=== PATIENT | female | born 1980 | race Caucasian/White ===

== ENCOUNTER 2020-01-25 18:49 | Inpatient (IN) ==
[~2020-01-25 18:49] MED LIST: cefTRIAXone 1,000 MG in Water for inj. (sterile) 10 ML IVPB SCH
[2020-01-25] MEDS ORDERED: Naloxone 0.4 MG/ML INJ IVP PRN (22:24)
[2020-01-25] MEDS ORDERED: 0.9 % Sodium Chloride 1,000 ML IVC SCH (22:30)
[2020-01-25] MEDS: *HR* HYDROcodone/Acet 5/325 mg TABLET PO PRN (23:25)
[2020-01-25] MEDS: tiZANidine 4 MG TABLET PO PRN (23:26)
[2020-01-25] MEDS: *HR* Heparin 5,000 UNIT/ML VIAL SQ SCH (23:26)
[2020-01-26] MEDS: *HR* Heparin 5,000 UNIT/ML VIAL SQ SCH ×3 (05:00→20:06)
[2020-01-26 05:32] LABS: Basophils # 0.1 K/mcL (0.0-0.2); Basophils % 0.3 %; Eosinophils # 0.3 K/mcL (0.0-0.6); Eosinophils % 1.9 %; Hematocrit 33.7 % (35.3-44.9); Immature Granulocytes % 0.5 % (0-4); Lymphocytes # 1.8 K/mcL (0.6-4.6); Mean Corpuscular HGB Conc 32.6 g/dL (31.6-35.5); Mean Corpuscular Volume 91.8 fL (83.0-100.0); Mean Platelet Volume 9.5 fL (9.4-12.4); Monocytes % 6.3 %; Neutrophils # 12.9 K/mcL (1.6-8.9); Platelet Count 369 K/mcL (140-400); Red Blood Count 3.67 M/mcL (3.82-4.97); Red Cell Distribution Width 14.6 % (11.5-14.5); White Blood Count 16.2 K/mcL (4.3-11.1)
[2020-01-26 05:41] LABS: Amphetamine Screen,Urine Negative ng/mL (Cutoff=1000); Barbiturate Screen,Urine Negative ng/mL (Cutoff=200); Benzodiazepines Screen,Urine Negative ng/mL (Cutoff=200); Cannabinoid Screen,Urine Positive ng/mL (Cutoff = 50); Cocaine Screen,Urine Negative ng/mL (Cutoff= 300); Opiate Screen,Urine Positive ng/mL (Cutoff=300); Phencyclidine Screen,Urine Negative ng/mL (Cutoff=25)
[2020-01-26 05:53] LABS: Alanine Aminotransferase 10 Units/L (7-52); Albumin 3.5 g/dL (3.5-5.7); Albumin/Globulin Ratio 1.1 (1.1-2.2); Alkaline Phosphatase 71 Units/L (34-104); Aspartate Amino Transferase 26 Units/L (13-39); BUN/Creatinine Ratio 12 (6-26); Bilirubin,Total 0.5 mg/dL (0.3-1.0); Blood Urea Nitrogen 6 mg/dL (6-20); C-Reactive Protein 293 mg/L (Less than 10); Calcium 8.9 mg/dL (8.6-10.3); Carbon Dioxide 19 mEq/L (23-29); Chloride 106 mEq/L (98-107); Globulin 3.1 g/dL (2.4-3.5); Glucose 96 mg/dL (70-105); Lactate Dehydrogenase 416 Units/L (140-271); Osmolality,Calculated 275 (280-300); Potassium 3.6 mEq/L (3.5-5.1); Sodium 134 mEq/L (136-145); Total Protein 6.6 g/dL (6.4-8.9); eGFR For African Americans > 60 (> 60); eGFR For Non-African Americans > 60 (> 60)
[2020-01-26 06:10] LABS: Ferritin 58 ng/mL (10-120)
[2020-01-26] MEDS ORDERED: Vancomycin 1,500 MG/265 ML IV.SOLN IVPB SCH (08:00)
[2020-01-26] MEDS: Azithromycin 500 MG in 0.9 % Sodium Chloride 250 ML IVPB SCH (08:14)
[2020-01-26] MEDS: Cefepime HCl 2,000 MG in Water for inj. (sterile) 20 ML IVP SCH ×3 (08:14→23:31)
[2020-01-26] MEDS: Gabapentin 400 MG CAPSULE PO SCH ×4 (08:15→20:06)
[2020-01-26] MEDS: amLODIPine 5 MG TABLET PO SCH (08:15)
[2020-01-26] MEDS: lisinopriL 20 MG TABLET PO SCH (08:15)
[2020-01-26] MEDS ORDERED: cefTRIAXone 1,000 MG in Water for inj. (sterile) 10 ML IVPB SCH (09:00)
[2020-01-26] MEDS: *HR* HYDROcodone/Acet 5/325 mg TABLET PO PRN ×3 (09:30→20:06)
[2020-01-26] MEDS: Ketorolac 30 MG/ML VIAL IVP PRN ×2 (11:28→23:31)
[2020-01-26] MEDS: Ondansetron 4 MG/2 ML VIAL IVP PRN (11:28)
[2020-01-26] MEDS: tiZANidine 4 MG TABLET PO PRN ×2 (11:28→23:31)
[2020-01-26] MEDS: Aspirin 81 MG TAB.CHEW PO SCH (14:15)
[2020-01-26] MEDS: QUEtiapine Fumarate 100 MG TABLET PO SCH (20:06)
[2020-01-26] MEDS: rOPINIRole 0.25 MG TABLET PO SCH (20:06)
[2020-01-27] MEDS: *HR* HYDROcodone/Acet 5/325 mg TABLET PO PRN ×5 (05:07→22:37)
[2020-01-27] MEDS: *HR* Heparin 5,000 UNIT/ML VIAL SQ SCH ×3 (05:07→22:36)
[2020-01-27 06:27] LABS: Hemoglobin 10.6 g/dL (11.5-15.4); Mean Corpuscular HGB Conc 32.1 g/dL (31.6-35.5); Mean Corpuscular Hemoglobin 29.3 pg (28.0-33.3); Mean Corpuscular Volume 91.2 fL (83.0-100.0); Mean Platelet Volume 9.5 fL (9.4-12.4); Platelet Count 386 K/mcL (140-400); Red Blood Count 3.62 M/mcL (3.82-4.97); Red Cell Distribution Width 14.4 % (11.5-14.5)
[2020-01-27] MEDS: Ketorolac 30 MG/ML VIAL IVP PRN ×2 (06:44→14:57)
[2020-01-27 06:48] LABS: BUN/Creatinine Ratio 15 (6-26); Blood Urea Nitrogen 9 mg/dL (6-20); Calcium 8.9 mg/dL (8.6-10.3); Carbon Dioxide 22 mEq/L (23-29); Chloride 108 mEq/L (98-107); Glucose 85 mg/dL (70-105); Osmolality,Calculated 284 (280-300); Potassium 3.8 mEq/L (3.5-5.1); Sodium 138 mEq/L (136-145); eGFR For African Americans > 60 (> 60); eGFR For Non-African Americans > 60 (> 60)
[2020-01-27] MEDS: lisinopriL 20 MG TABLET PO SCH (08:32)
[2020-01-27] MEDS: Gabapentin 400 MG CAPSULE PO SCH ×4 (08:32→20:23)
[2020-01-27] MEDS: amLODIPine 5 MG TABLET PO SCH (08:32)
[2020-01-27] MEDS: Cefepime HCl 2,000 MG in Water for inj. (sterile) 20 ML IVP SCH ×2 (08:32→17:21)
[2020-01-27] MEDS: Aspirin 81 MG TAB.CHEW PO SCH (08:32)
[2020-01-27] MEDS ORDERED: Aminoglycoside Consult 1 EACH MC ONE (08:59)
[2020-01-27] MEDS: Azithromycin 500 MG in 0.9 % Sodium Chloride 250 ML IVPB SCH (09:11)
[2020-01-27] MEDS: QUEtiapine Fumarate 100 MG TABLET PO SCH (20:23)
[2020-01-27] MEDS: rOPINIRole 0.25 MG TABLET PO SCH (20:23)
[2020-01-27] MEDS: tiZANidine 4 MG TABLET PO PRN (22:37)
[2020-01-28] MEDS: Cefepime HCl 2,000 MG in Water for inj. (sterile) 20 ML IVP SCH ×2 (00:25→08:36)
[2020-01-28] MEDS: *HR* HYDROcodone/Acet 5/325 mg TABLET PO PRN ×3 (04:13→12:43)
[2020-01-28] MEDS: *HR* Heparin 5,000 UNIT/ML VIAL SQ SCH ×2 (05:18→12:07)
[2020-01-28] MEDS: Ketorolac 30 MG/ML VIAL IVP PRN (05:18)
[2020-01-28 05:36] LABS: Hematocrit 32.8 % (35.3-44.9); Hemoglobin 10.6 g/dL (11.5-15.4); Mean Corpuscular HGB Conc 32.3 g/dL (31.6-35.5); Mean Corpuscular Hemoglobin 29.2 pg (28.0-33.3); Mean Corpuscular Volume 90.4 fL (83.0-100.0); Mean Platelet Volume 9.1 fL (9.4-12.4); Platelet Count 428 K/mcL (140-400); Red Blood Count 3.63 M/mcL (3.82-4.97); Red Cell Distribution Width 14.2 % (11.5-14.5); White Blood Count 6.5 K/mcL (4.3-11.1)
[2020-01-28 05:52] LABS: BUN/Creatinine Ratio 22 (6-26); Blood Urea Nitrogen 12 mg/dL (6-20); Calcium 8.7 mg/dL (8.6-10.3); Carbon Dioxide 20 mEq/L (23-29); Chloride 112 mEq/L (98-107); Glucose 88 mg/dL (70-105); Osmolality,Calculated 283 (280-300); Potassium 3.9 mEq/L (3.5-5.1); Sodium 137 mEq/L (136-145); eGFR For African Americans > 60 (> 60); eGFR For Non-African Americans > 60 (> 60)
[2020-01-28] MEDS: amLODIPine 5 MG TABLET PO SCH (08:39)
[2020-01-28] MEDS: lisinopriL 20 MG TABLET PO SCH (08:39)
[2020-01-28] MEDS: Aspirin 81 MG TAB.CHEW PO SCH (08:40)
[2020-01-28] MEDS: Gabapentin 400 MG CAPSULE PO SCH ×2 (08:40→12:07)
[2020-01-28] MEDS: Azithromycin 500 MG in 0.9 % Sodium Chloride 250 ML IVPB SCH (08:41)
[2020-01-28] MEDS ORDERED: Venlafaxine XR (24 HR) 75 MG CAP.ER.24H PO SCH (09:00)
[2020-01-28] MEDS ORDERED: Venlafaxine XR (24 HR) 150 MG CAP.ER.24H PO SCH (09:00)
[2020-01-28] MEDS: Ondansetron 4 MG/2 ML VIAL IVP PRN (10:45)
[2020-01-28] MEDS ORDERED: *HR* Propofol 200 MG/20 ML VIAL IVP ONE (11:06)
[2020-01-28] MEDS ORDERED: *HR* FentaNYL (PF) 100 MCG/2 ML VIAL ONE (11:06)
[2020-01-28] MEDS ORDERED: Ondansetron 4 MG/2 ML VIAL ONE (11:06)
[2020-01-28] MEDS ORDERED: Lidocaine -MPF 4% 5 ML AMPUL ONE (11:06)
[2020-01-28] MEDS ORDERED: Dexamethasone 4 MG/ML VIAL ONE (11:06)
[2020-01-28] MEDS ORDERED: *HR* EPINEPHrine 1 MG/10 ML SYRINGE INTRATRACH PRN (11:34)
[2020-01-28 12:46] VITALS: BP 115/69
[2020-01-28 16:25] LABS: Appearance of Body Fluid Clear (Clear); Volume of Body Fluid 15 mL; Volume of Body Fluid 22 mL
[2020-01-29 07:22] LABS: ANA IgG by ELISA NONE DETECTED (None Detected); Serine Protease-3 Antibody 1 AU/mL (0-19)
[2020-01-29] MEDS ORDERED: Azithromycin 250 MG TABLET PO SCH (09:00)
== END 2020-01-28 16:06 | disposition home or self-care (01) | DRG 720 ==
LOC: 2NENU
PROVIDERS: ADMIT Student in an Organized Health Care Education/Training Program; ATTEND Student in an Organized Health Care Education/Training Program
PROC: ENDOBRF (2020-01-28 10:05)

== ENCOUNTER 2020-03-19 01:01 | Inpatient (IN) ==
[2020-03-19] MEDS ORDERED: Naloxone 0.4 MG/ML INJ IVP PRN ×3 (02:56→19:09)
[2020-03-19] MEDS ORDERED: Acetaminophen 325 MG TABLET PO PRN ×2 (03:03→19:09)
[2020-03-19] MEDS ORDERED: *HR* Promethazine 25 MG/ML VIAL IVP PRN ×2 (03:03→19:09)
[2020-03-19 03:50] LABS: Adenovirus Not Detected (Not Detect); Bordetella Pertussis Not Detected (Not Detect); Chlamydophila pneumoniae Not Detected (Not Detect); Coronavirus 229E Not Detected (Not Detect); Coronavirus HKU1 Not Detected (Not Detect); Coronavirus NL63 Not Detected (Not Detect); Coronavirus OC43 Not Detected (Not Detect); Human Metapneumovirus Not Detected (Not Detect); Human Rhinovirus/Enterovirus Not Detected (Not Detect); Influenza A Subtype 2009 H1 Not Detected (Not Detect); Influenza B Not Detected (Not Detect); Mycoplasma pneumoniae Not Detected (Not Detect); Parainfluenza Virus 1 Not Detected (Not Detect); Parainfluenza Virus 2 Not Detected (Not Detect); Parainfluenza Virus 3 Not Detected (Not Detect); Parainfluenza Virus 4 Not Detected (Not Detect); Respiratory Syncytial Virus Not Detected (Not Detect); SARS-CoV-2 Not Detected (Not Detect)
[2020-03-19 04:39] LABS: Basophils % 0.2 %; Eosinophils # 0.3 K/mcL (0.0-0.6); Eosinophils % 1.7 %; Hematocrit 33.1 % (35.3-44.9); Hemoglobin 10.6 g/dL (11.5-15.4); Immature Granulocytes % 0.6 % (0-4); Lymphocytes # 1.7 K/mcL (0.6-4.6); Lymphocytes % 8.6 %; Mean Corpuscular Hemoglobin 28.8 pg (28.0-33.3); Mean Corpuscular Volume 89.9 fL (83.0-100.0); Mean Platelet Volume 9.5 fL (9.4-12.4); Monocytes # 0.8 K/mcL (0.0-1.3); Monocytes % 3.9 %; Neutrophils # 16.4 K/mcL (1.6-8.9); Platelet Count 382 K/mcL (140-400); Red Blood Count 3.68 M/mcL (3.82-4.97); Red Cell Distribution Width 14.6 % (11.5-14.5); White Blood Count 19.3 K/mcL (4.3-11.1)
[2020-03-19 04:47] LABS: INR 1.1; Prothrombin Time 12.6 Seconds (9.4-12.1)
[2020-03-19 05:03] LABS: Alanine Aminotransferase 8 Units/L (7-52); Albumin 3.6 g/dL (3.5-5.7); Albumin/Globulin Ratio 1.3 (1.1-2.2); Alkaline Phosphatase 87 Units/L (34-104); Aspartate Amino Transferase 29 Units/L (13-39); BUN/Creatinine Ratio 14 (6-26); Bilirubin,Total 0.4 mg/dL (0.3-1.0); Blood Urea Nitrogen 10 mg/dL (6-20); Calcium 8.4 mg/dL (8.6-10.3); Carbon Dioxide 23 mEq/L (23-29); Chloride 106 mEq/L (98-107); Chol/HDL Ratio 3.5 (0-4.9); Cholesterol 137 mg/dL (< 200); Globulin 2.7 g/dL (2.4-3.5); Glucose 98 mg/dL (70-105); HDL Cholesterol 39 mg/dL (40-59); LDL Cholesterol,Calculated 76 mg/dL (< 100); Osmolality,Calculated 281 (280-300); Phosphorous 2.4 mg/dL (2.7-4.5); Sodium 136 mEq/L (136-145); Total Protein 6.3 g/dL (6.4-8.9); Triglycerides 109 mg/dL (< 150); eGFR For African Americans > 60 (> 60); eGFR For Non-African Americans > 60 (> 60)
[2020-03-19] MEDS ORDERED: Ipratropium/Albuterol Neb 3 ML IH PRN ×2 (05:03→19:09)
[2020-03-19] MEDS ORDERED: tiZANidine 4 MG TABLET PO PRN (05:31)
[2020-03-19 06:35] LABS: Procalcitonin 0.21 ng/mL (0.00-0.15)
[2020-03-19] MEDS: *HR* HYDROcodone/Acet 5/325 mg TABLET PO PRN ×4 (06:37→21:54)
[2020-03-19 06:58] LABS: Folate 7.9 ng/mL (3.0-16.0)
[2020-03-19] MEDS ORDERED: lisinopriL 20 MG TABLET PO SCH (09:00)
[2020-03-19] MEDS ORDERED: Azithromycin 500 MG in 0.9 % Sodium Chloride 250 ML IVPB SCH (09:00)
[2020-03-19] MEDS ORDERED: amLODIPine 5 MG TABLET PO SCH (09:00)
[2020-03-19] MEDS ORDERED: cefTRIAXone 1,000 MG in 0.9 % Sodium Chloride Mini Bag 100 ML IVPB SCH (09:00)
[2020-03-19] MEDS ORDERED: Venlafaxine XR (24 HR) 75 MG CAP.ER.24H PO SCH (09:00)
[2020-03-19] MEDS ORDERED: Venlafaxine XR (24 HR) 150 MG CAP.ER.24H PO SCH (09:00)
[2020-03-19] MEDS ORDERED: polyethylene glycoL 3350 17 GM POWD.PACK PO SCH (09:00)
[2020-03-19] MEDS ORDERED: CefTRIAXone 1,000 MG VIAL ONE (09:20)
[2020-03-19] MEDS: Gabapentin 400 MG CAPSULE PO SCH ×3 (09:30→19:37)
[2020-03-19] MEDS ORDERED: Benzocaine 20% 12 APPL GEL..GRAM. TP PRN (09:32)
[2020-03-19] MEDS ORDERED: levoFLOXacin 750 MG/150 ML 750 MG/150 ML BAG IVPB SCH (10:15)
[2020-03-19] MEDS ORDERED: *HR* FentaNYL (PF) 100 MCG/2 ML VIAL ONE (15:57)
[2020-03-19] MEDS ORDERED: *HR* Propofol 200 MG/20 ML VIAL IVP ONE (15:58)
[2020-03-19] MEDS ORDERED: *HR* Midazolam HCl 2 MG/2 ML VIAL ONE (15:58)
[2020-03-19] MEDS ORDERED: Cefepime HCl 1,000 MG in Water for inj. (sterile) 10 ML IVP SCH (16:00)
[2020-03-19] MEDS ORDERED: Lidocaine -MPF 2% 2 ML VIAL ONE (16:01)
[2020-03-19] MEDS ORDERED: Dexamethasone 4 MG/ML VIAL ONE (16:01)
[2020-03-19] MEDS ORDERED: *HR* Rocuronium Bromide 50 MG/5 ML VIAL ONE (16:01)
[2020-03-19] MEDS ORDERED: Lidocaine HCL 4 ML Topical Solution (Laryng-O-Jet Kit Sterile Pak) TP ONE (16:01)
[2020-03-19] MEDS ORDERED: Ondansetron 4 MG/2 ML VIAL ONE (16:01)
[2020-03-19] MEDS ORDERED: *HR* Succinylcholine 200 MG/10 ML VIAL IVP ONE (16:01)
[2020-03-19] MEDS ORDERED: Ondansetron 4 MG/2 ML VIAL IVP ONE ×2 (16:25→19:09)
[2020-03-19] MEDS ORDERED: *HR* OxyCODONE Immed Rel 5 MG TABLET PO PRN ×2 (16:25→19:09)
[2020-03-19] MEDS ORDERED: *HR* HYDROMORPHONE 2 MG/ML VIAL ONE (17:00)
[2020-03-19] MEDS ORDERED: Ketorolac 30 MG/ML VIAL ONE (17:23)
[2020-03-19] MEDS: *HR* HYDROmorphone PF 0.5 MG/0.5 ML SYRINGE IVP PRN ×6 (17:25→18:29)
[2020-03-19] MEDS ORDERED: Acetaminophen IV 1,000 MG/100 ML BAG ONE (17:31)
[2020-03-19] MEDS ORDERED: Acetaminophen IV 1,000 MG/100 ML BAG IVPB ONE (17:38)
[2020-03-19] MEDS ORDERED: *HR* HYDROmorphone PF 0.5 MG/0.5 ML SYRINGE IVP PRN (18:00)
[2020-03-19] MEDS ORDERED: *HR* HYDROcodone/Acet 5/325 mg TABLET PO PRN (19:09)
[2020-03-19] MEDS: 0.9 % Sodium Chloride 1,000 ML IVC SCH (19:38)
[2020-03-19] MEDS: QUEtiapine Fumarate 100 MG TABLET PO SCH (19:38)
[2020-03-19] MEDS: Ketorolac 15 MG/ML VIAL IVP SCH (19:44)
[2020-03-19] MEDS ORDERED: Gabapentin 300 MG CAPSULE PO SCH (21:00)
[2020-03-19] MEDS ORDERED: QUEtiapine Fumarate 100 MG TABLET PO SCH (21:00)
[2020-03-19] MEDS: *HR* Heparin 5,000 UNIT/ML VIAL SQ SCH (21:54)
[2020-03-20] MEDS: Cefepime HCl 1,000 MG in Water for inj. (sterile) 10 ML IVP SCH ×2 (00:27→07:52)
[2020-03-20] MEDS: Ketorolac 15 MG/ML VIAL IVP SCH ×4 (00:29→18:40)
[2020-03-20] MEDS: Benzocaine 20% 12 APPL GEL..GRAM. TP PRN ×2 (00:30→10:42)
[2020-03-20] MEDS: *HR* HYDROcodone/Acet 5/325 mg TABLET PO PRN ×2 (02:56→07:53)
[2020-03-20 03:58] LABS: Basophils % 0.1 %; Eosinophils % 0.1 %; Hematocrit 33.8 % (35.3-44.9); Hemoglobin 10.5 g/dL (11.5-15.4); Immature Granulocytes % 0.7 % (0-4); Lymphocytes # 1.1 K/mcL (0.6-4.6); Lymphocytes % 5.8 %; Mean Corpuscular HGB Conc 31.1 g/dL (31.6-35.5); Mean Corpuscular Hemoglobin 28.5 pg (28.0-33.3); Mean Corpuscular Volume 91.6 fL (83.0-100.0); Mean Platelet Volume 9.8 fL (9.4-12.4); Monocytes # 0.6 K/mcL (0.0-1.3); Monocytes % 3.4 %; Neutrophils # 16.8 K/mcL (1.6-8.9); Platelet Count 383 K/mcL (140-400); Red Blood Count 3.69 M/mcL (3.82-4.97); Red Cell Distribution Width 14.7 % (11.5-14.5); Segmented Neutrophils % 89.9 %; White Blood Count 18.7 K/mcL (4.3-11.1)
[2020-03-20 04:19] LABS: BUN/Creatinine Ratio 13 (6-26); Blood Urea Nitrogen 10 mg/dL (6-20); Calcium 8.6 mg/dL (8.6-10.3); Carbon Dioxide 23 mEq/L (23-29); Chloride 107 mEq/L (98-107); Glucose 109 mg/dL (70-105); Osmolality,Calculated 284 (280-300); Potassium 4.2 mEq/L (3.5-5.1); Sodium 137 mEq/L (136-145); eGFR For African Americans > 60 (> 60); eGFR For Non-African Americans > 60 (> 60)
[2020-03-20] MEDS: *HR* Heparin 5,000 UNIT/ML VIAL SQ SCH ×3 (05:05→22:42)
[2020-03-20] MEDS: Venlafaxine XR (24 HR) 150 MG CAP.ER.24H PO SCH (07:53)
[2020-03-20] MEDS: Gabapentin 400 MG CAPSULE PO SCH ×4 (07:53→19:37)
[2020-03-20] MEDS: lisinopriL 20 MG TABLET PO SCH (07:54)
[2020-03-20] MEDS: amLODIPine 5 MG TABLET PO SCH (07:54)
[2020-03-20] MEDS: tiZANidine 4 MG TABLET PO PRN ×2 (08:13→19:38)
[2020-03-20] MEDS ORDERED: *HR* HYDROcodone/Acet 5/325 mg TABLET PO PRN (08:33)
[2020-03-20] MEDS ORDERED: levoFLOXacin 750 MG/150 ML 750 MG/150 ML BAG IVPB SCH (09:00)
[2020-03-20] MEDS ORDERED: polyethylene glycoL 3350 17 GM POWD.PACK PO SCH (09:00)
[2020-03-20] MEDS: 0.9 % Sodium Chloride 1,000 ML IVC SCH (09:16)
[2020-03-20] MEDS: *HR* OxyCODONE Immed Rel 5 MG TABLET PO PRN ×4 (09:16→22:42)
[2020-03-20] MEDS: predniSONE 20 MG TABLET PO SCH (12:05)
[2020-03-20] MEDS: Famotidine 20 MG TABLET PO SCH ×2 (12:06→19:38)
[2020-03-20 17:55] LABS: APTT (LE Anticoag) 51 sec (32-48); Diluted Russell Viper Venom 37 sec (33-44); LE Coag APTT Mixing 47 sec (32-48); Thrombin Time 15.3 sec (14.7-19.5)
[2020-03-20] MEDS: QUEtiapine Fumarate 100 MG TABLET PO SCH (19:38)
[2020-03-21] MEDS: Ketorolac 15 MG/ML VIAL IVP SCH ×5 (00:06→23:23)
[2020-03-21] MEDS: *HR* OxyCODONE Immed Rel 5 MG TABLET PO PRN ×5 (04:44→23:23)
[2020-03-21 05:54] LABS: Basophils % 0.2 %; Eosinophils % 0.1 %; Hematocrit 31.4 % (35.3-44.9); Hemoglobin 9.9 g/dL (11.5-15.4); Immature Granulocytes % 0.5 % (0-4); Lymphocytes # 1.4 K/mcL (0.6-4.6); Lymphocytes % 11.9 %; Mean Corpuscular HGB Conc 31.5 g/dL (31.6-35.5); Mean Corpuscular Hemoglobin 29.3 pg (28.0-33.3); Mean Corpuscular Volume 92.9 fL (83.0-100.0); Mean Platelet Volume 9.9 fL (9.4-12.4); Monocytes # 0.6 K/mcL (0.0-1.3); Monocytes % 4.8 %; Platelet Count 412 K/mcL (140-400); Red Blood Count 3.38 M/mcL (3.82-4.97); Red Cell Distribution Width 14.5 % (11.5-14.5); Segmented Neutrophils % 82.5 %; White Blood Count 12.1 K/mcL (4.3-11.1)
[2020-03-21] MEDS: *HR* Heparin 5,000 UNIT/ML VIAL SQ SCH ×3 (06:05→20:18)
[2020-03-21 06:12] LABS: BUN/Creatinine Ratio 14 (6-26); Blood Urea Nitrogen 9 mg/dL (6-20); Calcium 8.8 mg/dL (8.6-10.3); Carbon Dioxide 23 mEq/L (23-29); Chloride 110 mEq/L (98-107); Glucose 104 mg/dL (70-105); Osmolality,Calculated 289 (280-300); Potassium 3.9 mEq/L (3.5-5.1); Sodium 140 mEq/L (136-145); eGFR For African Americans > 60 (> 60); eGFR For Non-African Americans > 60 (> 60)
[2020-03-21] MEDS: lisinopriL 20 MG TABLET PO SCH (08:22)
[2020-03-21] MEDS: amLODIPine 5 MG TABLET PO SCH (08:23)
[2020-03-21] MEDS: Gabapentin 400 MG CAPSULE PO SCH ×4 (08:23→20:18)
[2020-03-21] MEDS: Famotidine 20 MG TABLET PO SCH ×2 (08:23→20:18)
[2020-03-21] MEDS: predniSONE 20 MG TABLET PO SCH (08:23)
[2020-03-21] MEDS: Venlafaxine XR (24 HR) 150 MG CAP.ER.24H PO SCH (08:26)
[2020-03-21] MEDS: polyethylene glycoL 3350 17 GM POWD.PACK PO SCH (09:23)
[2020-03-21] MEDS ORDERED: Morphine Sulfate 2 MG/ML SYRINGE IVP ONE (16:38)
[2020-03-21] MEDS ORDERED: Morphine Sulfate 2 MG/ML SYRINGE IVP PRN (16:52)
[2020-03-21] MEDS ORDERED: Isovue-370 500 ML BOTTLE IVP ONE (17:25)
[2020-03-21] MEDS: tiZANidine 4 MG TABLET PO PRN (20:18)
[2020-03-21] MEDS: QUEtiapine Fumarate 100 MG TABLET PO SCH (20:18)
[2020-03-22] MEDS: *HR* OxyCODONE Immed Rel 5 MG TABLET PO PRN ×3 (03:53→11:54)
[2020-03-22] MEDS: Ketorolac 15 MG/ML VIAL IVP SCH ×2 (05:29→15:11)
[2020-03-22] MEDS: *HR* Heparin 5,000 UNIT/ML VIAL SQ SCH ×2 (05:29→15:08)
[2020-03-22] MEDS: Famotidine 20 MG TABLET PO SCH (07:45)
[2020-03-22] MEDS: predniSONE 20 MG TABLET PO SCH (07:45)
[2020-03-22] MEDS: Gabapentin 400 MG CAPSULE PO SCH ×3 (07:45→17:23)
[2020-03-22] MEDS: lisinopriL 20 MG TABLET PO SCH (07:45)
[2020-03-22] MEDS: amLODIPine 5 MG TABLET PO SCH (07:45)
[2020-03-22] MEDS: Venlafaxine XR (24 HR) 150 MG CAP.ER.24H PO SCH (07:46)
[2020-03-22] MEDS: polyethylene glycoL 3350 17 GM POWD.PACK PO SCH (07:46)
[2020-03-22 11:04] LABS: Basophils # 0.1 K/mcL (0.0-0.2); Basophils % 0.6 %; Eosinophils # 0.2 K/mcL (0.0-0.6); Eosinophils % 1.7 %; Hemoglobin 10.4 g/dL (11.5-15.4); Immature Granulocytes % 1.6 % (0-4); Lymphocytes # 1.2 K/mcL (0.6-4.6); Mean Corpuscular HGB Conc 31.5 g/dL (31.6-35.5); Mean Corpuscular Hemoglobin 28.6 pg (28.0-33.3); Mean Corpuscular Volume 90.7 fL (83.0-100.0); Mean Platelet Volume 9.4 fL (9.4-12.4); Monocytes # 0.5 K/mcL (0.0-1.3); Monocytes % 4.5 %; Neutrophils # 8.1 K/mcL (1.6-8.9); Platelet Count 521 K/mcL (140-400); Red Blood Count 3.64 M/mcL (3.82-4.97); Red Cell Distribution Width 14.6 % (11.5-14.5); Segmented Neutrophils % 79.6 %; White Blood Count 10.2 K/mcL (4.3-11.1)
[2020-03-22 12:25] VITALS: BP 156/103
[2020-03-22] MEDS ORDERED: *HR* HYDROcodone/Acet 5/325 mg TABLET PO ONE (16:41)
== END 2020-03-22 17:54 | disposition home or self-care (01) | DRG 121 ==
LOC: 2ANU → SUATTDRO 02:15 → 2NNU 19:11
PROVIDERS: ADMIT Internal Medicine; ATTEND Internal Medicine

== ENCOUNTER 2020-04-24 14:14 | Inpatient (IN) ==
[2020-04-24] MEDS ORDERED: Naloxone 0.4 MG/ML INJ IVP PRN (17:56)
[2020-04-24] MEDS ORDERED: Furosemide 20 MG/2 ML VIAL IVP ONE (19:00)
[2020-04-24 19:13] LABS: Basophils % 0.3 %; Eosinophils # 0.3 K/mcL (0.0-0.6); Eosinophils % 1.9 %; Hematocrit 34.5 % (35.3-44.9); Hemoglobin 10.6 g/dL (11.5-15.4); Immature Granulocytes % 0.7 % (0-4); Lymphocytes # 1.1 K/mcL (0.6-4.6); Lymphocytes % 7.9 %; Mean Corpuscular HGB Conc 30.7 g/dL (31.6-35.5); Mean Platelet Volume 9.1 fL (9.4-12.4); Monocytes # 0.8 K/mcL (0.0-1.3); Monocytes % 5.9 %; Neutrophils # 11.5 K/mcL (1.6-8.9); Platelet Count 431 K/mcL (140-400); Red Blood Count 3.79 M/mcL (3.82-4.97); Red Cell Distribution Width 14.5 % (11.5-14.5); Segmented Neutrophils % 83.3 %; White Blood Count 13.8 K/mcL (4.3-11.1)
[2020-04-24 19:15] LABS: INR 1.5; Prothrombin Time 17.4 Seconds (9.4-12.1)
[2020-04-24 19:31] LABS: Alanine Aminotransferase 6 Units/L (7-52); Albumin 3.4 g/dL (3.5-5.7); Albumin/Globulin Ratio 1.1 (1.1-2.2); Alkaline Phosphatase 65 Units/L (34-104); Aspartate Amino Transferase 22 Units/L (13-39); BUN/Creatinine Ratio 12 (6-26); Bilirubin,Direct 0.1 mg/dL (0.0-0.2); Bilirubin,Indirect 0.4 mg/dL (0.0-1.0); Bilirubin,Total 0.5 mg/dL (0.3-1.0); Blood Urea Nitrogen 7 mg/dL (6-20); Calcium 8.7 mg/dL (8.6-10.3); Carbon Dioxide 22 mEq/L (23-29); Chloride 106 mEq/L (98-107); Glucose 75 mg/dL (70-105); Magnesium 2.1 mg/dL (1.6-2.6); Osmolality,Calculated 277 (280-300); Phosphorous 3.1 mg/dL (2.7-4.5); Sodium 135 mEq/L (136-145); Total Protein 6.4 g/dL (6.4-8.9); eGFR For African Americans > 60 (> 60); eGFR For Non-African Americans > 60 (> 60)
[2020-04-24] MEDS: QUEtiapine Fumarate 100 MG TABLET PO SCH (19:58)
[2020-04-24] MEDS: Gabapentin 400 MG CAPSULE PO SCH (19:58)
[2020-04-24] MEDS: BUPRENORPHINE HCL SL SCH (19:59)
[2020-04-24] MEDS: NALOXONE HCL SL SCH (19:59)
[2020-04-25 01:35] LABS: Basophils % 0.2 %; Eosinophils # 0.3 K/mcL (0.0-0.6); Eosinophils % 2.4 %; Hemoglobin 10.3 g/dL (11.5-15.4); Immature Granulocytes % 0.6 % (0-4); Lymphocytes # 1.2 K/mcL (0.6-4.6); Lymphocytes % 8.2 %; Mean Corpuscular HGB Conc 31.2 g/dL (31.6-35.5); Mean Corpuscular Hemoglobin 28.8 pg (28.0-33.3); Mean Corpuscular Volume 92.2 fL (83.0-100.0); Mean Platelet Volume 9.1 fL (9.4-12.4); Monocytes % 6.9 %; Neutrophils # 11.6 K/mcL (1.6-8.9); Platelet Count 414 K/mcL (140-400); Red Blood Count 3.58 M/mcL (3.82-4.97); Red Cell Distribution Width 14.6 % (11.5-14.5); Segmented Neutrophils % 81.7 %; White Blood Count 14.2 K/mcL (4.3-11.1)
[2020-04-25 01:54] LABS: BUN/Creatinine Ratio 10 (6-26); Blood Urea Nitrogen 7 mg/dL (6-20); Calcium 8.6 mg/dL (8.6-10.3); Carbon Dioxide 23 mEq/L (23-29); Chloride 104 mEq/L (98-107); Glucose 87 mg/dL (70-105); Osmolality,Calculated 277 (280-300); Potassium 3.8 mEq/L (3.5-5.1); Sodium 135 mEq/L (136-145); eGFR For African Americans > 60 (> 60); eGFR For Non-African Americans > 60 (> 60)
[2020-04-25] MEDS ORDERED: predniSONE 20 MG TABLET PO SCH (09:00)
[2020-04-25] MEDS: Gabapentin 400 MG CAPSULE PO SCH ×4 (09:10→20:19)
[2020-04-25] MEDS: *HR* Heparin 5,000 UNIT/ML VIAL SQ SCH ×2 (09:11→19:06)
[2020-04-25] MEDS: Venlafaxine XR (24 HR) 150 MG CAP.ER.24H PO SCH (09:11)
[2020-04-25] MEDS: NALOXONE HCL SL SCH ×2 (09:47→20:19)
[2020-04-25] MEDS: BUPRENORPHINE HCL SL SCH ×2 (09:47→20:19)
[2020-04-25 12:07] LABS: Amphetamine Screen,Urine Negative ng/mL (Cutoff=1000); Barbiturate Screen,Urine Negative ng/mL (Cutoff=200); Benzodiazepines Screen,Urine Negative ng/mL (Cutoff=200); Cannabinoid Screen,Urine Positive ng/mL (Cutoff = 50); Cocaine Screen,Urine Negative ng/mL (Cutoff= 300); Opiate Screen,Urine Negative ng/mL (Cutoff=300); Phencyclidine Screen,Urine Negative ng/mL (Cutoff=25)
[2020-04-25] MEDS: methylPREDNISolone 125 MG/2 ML VIAL IVP SCH ×2 (15:34→23:29)
[2020-04-25] MEDS: levoFLOXacin 750 MG TABLET PO SCH (15:34)
[2020-04-25] MEDS: Budesonide/Formoterol 160/4.5 1 PUFF INH IH SCH (19:47)
[2020-04-25] MEDS: QUEtiapine Fumarate 100 MG TABLET PO SCH (20:19)
[2020-04-26] MEDS: *HR* Heparin 5,000 UNIT/ML VIAL SQ SCH (06:34)
[2020-04-26] MEDS: Budesonide/Formoterol 160/4.5 1 PUFF INH IH SCH (07:14)
[2020-04-26] MEDS: methylPREDNISolone 125 MG/2 ML VIAL IVP SCH (07:34)
[2020-04-26 07:35] VITALS: BP 121/75
[2020-04-26] MEDS: Gabapentin 400 MG CAPSULE PO SCH (07:35)
[2020-04-26] MEDS: Venlafaxine XR (24 HR) 150 MG CAP.ER.24H PO SCH (07:35)
[2020-04-26] MEDS: levoFLOXacin 750 MG TABLET PO SCH (07:35)
[2020-04-26 08:58] LABS: Basophils % 0.1 %; Hematocrit 33.7 % (35.3-44.9); Hemoglobin 10.6 g/dL (11.5-15.4); Immature Granulocytes % 0.7 % (0-4); Lymphocytes # 0.8 K/mcL (0.6-4.6); Lymphocytes % 4.3 %; Mean Corpuscular HGB Conc 31.5 g/dL (31.6-35.5); Mean Corpuscular Hemoglobin 27.8 pg (28.0-33.3); Mean Corpuscular Volume 88.5 fL (83.0-100.0); Mean Platelet Volume 9.1 fL (9.4-12.4); Monocytes # 0.8 K/mcL (0.0-1.3); Neutrophils # 17.8 K/mcL (1.6-8.9); Platelet Count 523 K/mcL (140-400); Red Blood Count 3.81 M/mcL (3.82-4.97); Segmented Neutrophils % 90.9 %; White Blood Count 19.6 K/mcL (4.3-11.1)
[2020-04-26] MEDS ORDERED: levoFLOXacin 750 MG TABLET PO SCH (09:00)
[2020-04-26 09:14] LABS: BUN/Creatinine Ratio 14 (6-26); Blood Urea Nitrogen 10 mg/dL (6-20); Calcium 9.2 mg/dL (8.6-10.3); Carbon Dioxide 22 mEq/L (23-29); Chloride 106 mEq/L (98-107); Glucose 182 mg/dL (70-105); Magnesium 1.9 mg/dL (1.6-2.6); Osmolality,Calculated 286 (280-300); Phosphorous 2.9 mg/dL (2.7-4.5); Potassium 3.8 mEq/L (3.5-5.1); Sodium 136 mEq/L (136-145); eGFR For African Americans > 60 (> 60); eGFR For Non-African Americans > 60 (> 60)
[2020-04-26] MEDS: BUPRENORPHINE HCL SL SCH (10:01)
[2020-04-26] MEDS: NALOXONE HCL SL SCH (10:01)
== END 2020-04-26 11:17 | disposition short-term general hospital (02) | DRG 139 ==
LOC: 2NNU → SUATTDRO 16:10
PROVIDERS: ADMIT Internal Medicine; ATTEND Internal Medicine

== ENCOUNTER 2020-05-28 02:54 | Observation (INO) ==
[2020-05-28 05:44] LABS: Adenovirus Not Detected (Not Detect); Coronavirus 229E Not Detected (Not Detect); Coronavirus HKU1 Not Detected (Not Detect); Coronavirus NL63 Not Detected (Not Detect); Coronavirus OC43 Not Detected (Not Detect)
[2020-05-28 05:45] LABS: Bordetella Pertussis Not Detected (Not Detect); Chlamydophila pneumoniae Not Detected (Not Detect); Human Metapneumovirus Not Detected (Not Detect); Human Rhinovirus/Enterovirus DETECTED (Not Detect); Influenza A Subtype 2009 H1 Not Detected (Not Detect); Influenza B Not Detected (Not Detect); Mycoplasma pneumoniae Not Detected (Not Detect); Parainfluenza Virus 1 Not Detected (Not Detect); Parainfluenza Virus 2 Not Detected (Not Detect); Parainfluenza Virus 3 Not Detected (Not Detect); Parainfluenza Virus 4 Not Detected (Not Detect); Respiratory Syncytial Virus Not Detected (Not Detect); SARS-CoV-2 Not Detected (Not Detect)
[2020-05-28] MEDS ORDERED: Naloxone 0.4 MG/ML INJ IVP PRN (06:23)
[2020-05-28] MEDS ORDERED: 0.9 % Sodium Chloride 1,000 ML IVC SCH (06:30)
[2020-05-28] MEDS ORDERED: Azithromycin 500 MG in 0.9 % Sodium Chloride 250 ML IVPB SCH (07:00)
[2020-05-28] MEDS ORDERED: Vancomycin 1,500 MG/265 ML IV.SOLN IVPB ONE (07:39)
[2020-05-28] MEDS ORDERED: Cefepime HCl 2,000 MG in 0.9 % Sodium Chloride Mini Bag 100 ML IVPB SCH (08:00)
[2020-05-28] MEDS ORDERED: Ibuprofen 400 MG TABLET PO PRN (08:45)
[2020-05-28] MEDS ORDERED: NALOXONE HCL SL SCH (09:00)
[2020-05-28] MEDS ORDERED: BUPRENORPHINE HCL SL SCH (09:00)
[2020-05-28] MEDS ORDERED: predniSONE 20 MG TABLET PO SCH (09:00)
[2020-05-28] MEDS ORDERED: Ondansetron 4 MG/2 ML VIAL IVP PRN (09:20)
[2020-05-28 09:27] LABS: Basophils % 0.1 %; Eosinophils # 0.2 K/mcL (0.0-0.6); Eosinophils % 1.5 %; Hematocrit 32.7 % (35.3-44.9); Hemoglobin 9.9 g/dL (11.5-15.4); Immature Granulocytes % 0.6 % (0-4); Lymphocytes # 1.7 K/mcL (0.6-4.6); Lymphocytes % 11.1 %; Mean Corpuscular HGB Conc 30.3 g/dL (31.6-35.5); Mean Corpuscular Hemoglobin 27.7 pg (28.0-33.3); Mean Corpuscular Volume 91.6 fL (83.0-100.0); Monocytes % 6.3 %; Neutrophils # 12.3 K/mcL (1.6-8.9); Platelet Count 260 K/mcL (140-400); Red Blood Count 3.57 M/mcL (3.82-4.97); Red Cell Distribution Width 17.4 % (11.5-14.5); Segmented Neutrophils % 80.4 %; White Blood Count 15.3 K/mcL (4.3-11.1)
[2020-05-28] MEDS: *HR* Heparin 5,000 UNIT/ML VIAL SQ SCH ×3 (09:29→22:18)
[2020-05-28] MEDS: Gabapentin 400 MG CAPSULE PO SCH ×4 (09:29→22:19)
[2020-05-28] MEDS: Venlafaxine XR (24 HR) 150 MG CAP.ER.24H PO SCH (09:29)
[2020-05-28 09:49] LABS: Albumin 3.5 g/dL (3.5-5.7); Albumin/Globulin Ratio 1.6 (1.1-2.2); Bilirubin,Total 0.3 mg/dL (0.3-1.0); Globulin 2.2 g/dL (2.4-3.5); Potassium 4.8 mEq/L (3.5-5.1); Total Protein 5.7 g/dL (6.4-8.9)
[2020-05-28 09:55] LABS: Uric Acid 7.3 mg/dL (2.3-7.6)
[2020-05-28 12:21] LABS: Procalcitonin 0.19 ng/mL (0.00-0.15)
[2020-05-28 13:16] LABS: Hepatitis B Surface Antigen Nonreactive (Nonreactive)
[2020-05-28 13:46] LABS: Hepatitis A Antibody IgM Nonreactive (Nonreactive); Hepatitis B Core IgM Nonreactive (Nonreactive)
[2020-05-28] MEDS: NALOXONE HCL SL SCH ×2 (14:53→20:30)
[2020-05-28] MEDS: BUPRENORPHINE HCL SL SCH ×2 (14:53→20:30)
[2020-05-28] MEDS: Sodium Bicarbonate 75 MEQ in 0.45 % Sodium Chloride 1,000 ML IVC SCH (14:53)
[2020-05-28 15:11] LABS: Hepatitis C Virus Antibody Reactive (Nonreactive)
[2020-05-28] MEDS: tiZANidine 4 MG TABLET PO PRN ×2 (17:36→22:18)
[2020-05-28] MEDS: Doxycycline 100 MG CAPSULE PO SCH (22:18)
[2020-05-28] MEDS: QUEtiapine Fumarate 100 MG TABLET PO SCH (22:18)
[2020-05-28 22:46] LABS: Protein/Creatinine Ratio,Urine 0.37 mg/mg (0.00-0.20); Sodium, Urine 73.7 mEq/L
[2020-05-29] MEDS: Sodium Bicarbonate 75 MEQ in 0.45 % Sodium Chloride 1,000 ML IVC SCH ×2 (02:51→13:06)
[2020-05-29] MEDS: *HR* Heparin 5,000 UNIT/ML VIAL SQ SCH ×3 (06:43→20:43)
[2020-05-29 07:23] LABS: Calcium 8.4 mg/dL (8.6-10.3); Magnesium 2.3 mg/dL (1.6-2.6); Phosphorous 2.9 mg/dL (2.7-4.5); Potassium 5.3 mEq/L (3.5-5.1)
[2020-05-29] MEDS: Venlafaxine XR (24 HR) 150 MG CAP.ER.24H PO SCH (09:05)
[2020-05-29] MEDS: BUPRENORPHINE HCL SL SCH ×2 (09:06→20:44)
[2020-05-29] MEDS: NALOXONE HCL SL SCH ×2 (09:06→20:44)
[2020-05-29] MEDS: Doxycycline 100 MG CAPSULE PO SCH ×2 (09:06→20:44)
[2020-05-29] MEDS: predniSONE 20 MG TABLET PO SCH (09:06)
[2020-05-29 09:20] LABS: Basophils % 0.1 %; Eosinophils # 0.2 K/mcL (0.0-0.6); Eosinophils % 1.1 %; Hematocrit 34.5 % (35.3-44.9); Hemoglobin 10.3 g/dL (11.5-15.4); Immature Granulocytes % 0.6 % (0-4); Lymphocytes # 1.8 K/mcL (0.6-4.6); Lymphocytes % 12.8 %; Mean Corpuscular HGB Conc 29.9 g/dL (31.6-35.5); Mean Corpuscular Hemoglobin 27.1 pg (28.0-33.3); Mean Platelet Volume 9.2 fL (9.4-12.4); Monocytes # 0.7 K/mcL (0.0-1.3); Monocytes % 4.6 %; Neutrophils # 11.6 K/mcL (1.6-8.9); Platelet Count 312 K/mcL (140-400); Red Cell Distribution Width 17.2 % (11.5-14.5); Segmented Neutrophils % 80.8 %; White Blood Count 14.3 K/mcL (4.3-11.1)
[2020-05-29 09:23] LABS: Mean Corpuscular Volume 90.8 fL (83.0-100.0)
[2020-05-29] MEDS: QUEtiapine Fumarate 100 MG TABLET PO SCH (20:43)
[2020-05-30] MEDS: *HR* Heparin 5,000 UNIT/ML VIAL SQ SCH (05:35)
[2020-05-30 06:47] LABS: Basophils % 0.2 %; Eosinophils # 0.2 K/mcL (0.0-0.6); Eosinophils % 1.7 %; Hemoglobin 9.8 g/dL (11.5-15.4); Immature Granulocytes % 0.6 % (0-4); Lymphocytes # 2.3 K/mcL (0.6-4.6); Lymphocytes % 20.8 %; Mean Corpuscular HGB Conc 30.6 g/dL (31.6-35.5); Mean Corpuscular Hemoglobin 27.8 pg (28.0-33.3); Mean Corpuscular Volume 90.7 fL (83.0-100.0); Monocytes # 0.6 K/mcL (0.0-1.3); Monocytes % 5.9 %; Neutrophils # 7.7 K/mcL (1.6-8.9); Platelet Count 298 K/mcL (140-400); Red Blood Count 3.53 M/mcL (3.82-4.97); Segmented Neutrophils % 70.8 %; White Blood Count 10.9 K/mcL (4.3-11.1)
[2020-05-30 07:15] LABS: BUN/Creatinine Ratio 24 (6-26); Blood Urea Nitrogen 19 mg/dL (6-20); Calcium 8.7 mg/dL (8.6-10.3); Carbon Dioxide 25 mEq/L (23-29); Chloride 106 mEq/L (98-107); Glucose 80 mg/dL (70-105); Magnesium 1.7 mg/dL (1.6-2.6); Osmolality,Calculated 283 (280-300); Phosphorous 2.3 mg/dL (2.7-4.5); Potassium 3.8 mEq/L (3.5-5.1); Sodium 136 mEq/L (136-145); eGFR For African Americans > 60 (> 60); eGFR For Non-African Americans > 60 (> 60)
[2020-05-30 07:36] VITALS: BP 162/90
[2020-05-30] MEDS: predniSONE 20 MG TABLET PO SCH (09:14)
[2020-05-30] MEDS: Doxycycline 100 MG CAPSULE PO SCH (09:14)
[2020-05-30] MEDS: Venlafaxine XR (24 HR) 150 MG CAP.ER.24H PO SCH (09:15)
[2020-06-01 09:02] LABS: Serine Protease-3 Antibody 1 AU/mL (0-19)
== END 2020-05-30 10:51 | disposition home or self-care (01) ==
LOC: CDU → 2NNU 06:20 → 2ANU 05-29 19:32
PROVIDERS: ADMIT Internal Medicine; ATTEND Internal Medicine

== ENCOUNTER 2020-06-15 21:11 | Inpatient (IN) ==
[2020-06-15] MEDS ORDERED: 0.9 % Sodium Chloride 1,000 ML IVC ONE (21:31)
[2020-06-15 21:57] LABS: Bilirubin,Urine Negative (Negative); Blood,Urine Negative (Negative); Clarity,Urine Clear (Clear); Color,Urine Yellow (Yellow); Glucose,Urine (UA) 30 mg/dL (Normal); Ketones,Urine Negative (Negative); Leukocyte Esterase,Urine Negative (Negative); Mucus,Urine Few per lpf (None-Few); Nitrite,Urine Negative (Negative); PH,Urine 5.5 pH Units (5.0-8.0); Protein,Urine 50 mg/dL (Neg-Trace); Specific Gravity,Urine 1.027 (1.010-1.025); Squamous Epithelial Cell,Urine Few per hpf (None-Few); Urobilinogen,Urine Normal (Normal); WBC,Urine 0-3 per hpf (0-3)
[2020-06-15] MEDS ORDERED: Cefepime HCl 2,000 MG in 0.9 % Sodium Chloride Mini Bag 100 ML IVPB STA (22:03)
[2020-06-15] MEDS ORDERED: Isovue-370 500 ML BOTTLE IVP ONE (22:05)
[2020-06-15 22:24] LABS: Mean Platelet Volume 9.5 fL (9.4-12.4)
[2020-06-15 22:26] LABS: Hematocrit 34.9 % (35.3-44.9); Hemoglobin 11.2 g/dL (11.5-15.4); Mean Corpuscular HGB Conc 32.1 g/dL (31.6-35.5); Mean Corpuscular Hemoglobin 28.8 pg (28.0-33.3); Mean Corpuscular Volume 89.7 fL (83.0-100.0); Platelet Count 391 K/mcL (140-400); Red Blood Count 3.89 M/mcL (3.82-4.97); White Blood Count 25.4 K/mcL (4.3-11.1)
[2020-06-15 22:39] LABS: INR 1.5; Prothrombin Time 17.2 Seconds (9.4-12.1)
[2020-06-15 22:41] LABS: Activated Partial Thrombo Time 29.7 Seconds (26.0-36.0)
[2020-06-15 22:44] LABS: Alanine Aminotransferase 19 Units/L (7-52); Albumin 3.5 g/dL (3.5-5.7); Albumin/Globulin Ratio 1.3 (1.1-2.2); Alkaline Phosphatase 67 Units/L (34-104); Aspartate Amino Transferase 42 Units/L (13-39); BUN/Creatinine Ratio 22 (6-26); Bilirubin,Total 0.6 mg/dL (0.3-1.0); Blood Urea Nitrogen 19 mg/dL (6-20); Calcium 8.6 mg/dL (8.6-10.3); Carbon Dioxide 22 mEq/L (23-29); Chloride 108 mEq/L (98-107); Globulin 2.6 g/dL (2.4-3.5); Glucose 114 mg/dL (70-105); Osmolality,Calculated 291 (280-300); Potassium 3.9 mEq/L (3.5-5.1); Sodium 139 mEq/L (136-145); Total Protein 6.1 g/dL (6.4-8.9); eGFR For African Americans > 60 (> 60); eGFR For Non-African Americans > 60 (> 60)
[2020-06-15 22:48] LABS: Troponin I 0.49 ng/mL (< 0.04)
[2020-06-15 23:26] LABS: Lymphocytes # 1.5 K/mcL (0.6-4.6); Neutrophils # 22.9 K/mcL (1.6-8.9); Platelet Estimate Normal (Normal); Smudge Cells Present (Not Present)
[2020-06-15 23:27] LABS: Reactive Lymphocytes Present (Not Present)
[2020-06-15 23:33] LABS: ABG Base Excess -2 mEq/L (-2 to 3); ABG HCO3 22 mEq/L (21-27); ABG Oxygen Saturation 87 % (95-98); ABG PCO2 36 mmHg (35-45); ABG PO2 53 mmHg (85-104); ABG TCO2 23 mEq/L (20-26); Blood Gas Modality NIV
[2020-06-16] MEDS ORDERED: 0.9 % Sodium Chloride 1,000 ML IVC SCH (00:30)
[2020-06-16] MEDS ORDERED: *HR* Heparin 5,000 UNIT/ML VIAL IVP PRN (01:12)
[2020-06-16] MEDS ORDERED: *HR* Heparin 5,000 UNIT/ML VIAL IVP ONE (01:12)
[2020-06-16] MEDS ORDERED: Naloxone 0.4 MG/ML INJ IVP PRN ×2 (01:16→04:04)
[2020-06-16] MEDS ORDERED: Ondansetron ODT 4 MG TAB.RAPDIS SL PRN (01:21)
[2020-06-16] MEDS: Heparin 25,000UNIT/250ML 1/2NS 25,000 UNIT/250 ML IV.SOLN IVC SCH ×2 (01:35→22:04)
[2020-06-16 01:36] LABS: Adenovirus Not Detected (Not Detect); Bordetella Pertussis Not Detected (Not Detect); Chlamydophila pneumoniae Not Detected (Not Detect); Coronavirus 229E Not Detected (Not Detect); Coronavirus HKU1 Not Detected (Not Detect); Coronavirus NL63 Not Detected (Not Detect); Coronavirus OC43 Not Detected (Not Detect); Human Metapneumovirus Not Detected (Not Detect); Human Rhinovirus/Enterovirus Not Detected (Not Detect); Influenza A Subtype 2009 H1 Not Detected (Not Detect); Influenza B Not Detected (Not Detect); Mycoplasma pneumoniae Not Detected (Not Detect); Parainfluenza Virus 1 Not Detected (Not Detect); Parainfluenza Virus 2 Not Detected (Not Detect); Parainfluenza Virus 3 Not Detected (Not Detect); Parainfluenza Virus 4 Not Detected (Not Detect); Respiratory Syncytial Virus Not Detected (Not Detect); SARS-CoV-2 Not Detected (Not Detect)
[2020-06-16] MEDS ORDERED: Aspirin 325 MG TABLET PO ONE (01:47)
[2020-06-16] MEDS ORDERED: Perflutren Lipid Microsphere 1.3 ML in 0.9 % Sodium Chloride 8.7 ML IVP PRN (02:17)
[2020-06-16] MEDS: MethylPREDNISolone 40 MG/ML VIAL IVP SCH ×2 (02:31→08:54)
[2020-06-16] MEDS ORDERED: Azithromycin 250 MG TABLET PO SCH (04:15)
[2020-06-16] MEDS: Azithromycin 500 MG in 0.9 % Sodium Chloride 250 ML IVPB SCH (05:47)
[2020-06-16] MEDS ORDERED: Acetaminophen IV 1,000 MG/100 ML INFUS..BTL IVPB ONE ×2 (06:37→09:00)
[2020-06-16] MEDS ORDERED: Ondansetron 4 MG/2 ML VIAL IVP PRN (06:37)
[2020-06-16 08:24] LABS: Hematocrit 33.8 % (35.3-44.9); Hemoglobin 10.5 g/dL (11.5-15.4); Mean Corpuscular HGB Conc 31.1 g/dL (31.6-35.5); Mean Corpuscular Hemoglobin 28.2 pg (28.0-33.3); Mean Corpuscular Volume 90.6 fL (83.0-100.0); Mean Platelet Volume 9.8 fL (9.4-12.4); Platelet Count 342 K/mcL (140-400); Red Blood Count 3.73 M/mcL (3.82-4.97); Red Cell Distribution Width 17.1 % (11.5-14.5); White Blood Count 25.4 K/mcL (4.3-11.1)
[2020-06-16 08:45] LABS: BUN/Creatinine Ratio 22 (6-26); Blood Urea Nitrogen 15 mg/dL (6-20); Calcium 8.4 mg/dL (8.6-10.3); Carbon Dioxide 19 mEq/L (23-29); Chloride 113 mEq/L (98-107); Glucose 165 mg/dL (70-105); Osmolality,Calculated 293 (280-300); Potassium 3.7 mEq/L (3.5-5.1); Sodium 139 mEq/L (136-145); Troponin I 0.45 ng/mL (< 0.04); eGFR For African Americans > 60 (> 60); eGFR For Non-African Americans > 60 (> 60)
[2020-06-16] MEDS: Cefepime HCl 2,000 MG in Water for inj. (sterile) 20 ML IVP SCH ×2 (08:53→15:15)
[2020-06-16] MEDS: Gabapentin 400 MG CAPSULE PO SCH ×3 (08:54→19:52)
[2020-06-16] MEDS: Venlafaxine XR (24 HR) 150 MG CAP.ER.24H PO SCH (08:54)
[2020-06-16 10:40] LABS: Monocytes # 0.5 K/mcL (0.0-1.3); Neutrophils # 24.9 K/mcL (1.6-8.9); Toxic Granulation Present (Not Present)
[2020-06-16 10:42] LABS: Anisocytosis 1+ (Not Present); Platelet Estimate Normal (Normal)
[2020-06-16] MEDS: Vancomycin 1,500 MG/265 ML IV.SOLN IVPB SCH ×2 (11:56→22:06)
[2020-06-16] MEDS ORDERED: Gabapentin 400 MG CAPSULE PO ONE (16:00)
[2020-06-16 16:44] LABS: ABG Base Excess -4 mEq/L (-2 to 3); ABG HCO3 21 mEq/L (21-27); ABG Oxygen Saturation 91 % (95-98); ABG PCO2 36 mmHg (35-45); ABG PH 7.37 pH Units (7.32-7.45); ABG PO2 63 mmHg (85-104); ABG TCO2 22 mEq/L (20-26)
[2020-06-16] MEDS ORDERED: Furosemide 20 MG/2 ML VIAL IVP ONE (16:50)
[2020-06-16] MEDS ORDERED: Gabapentin 400 MG CAPSULE PO SCH (17:00)
[2020-06-16] MEDS: *HR* Heparin 5,000 UNIT/ML VIAL IVP PRN (17:30)
[2020-06-16] MEDS: tiZANidine 4 MG TABLET PO PRN (17:32)
[2020-06-16] MEDS: methylPREDNISolone 125 MG/2 ML VIAL IVP SCH (17:46)
[2020-06-16 18:45] LABS: Amphetamine Screen,Urine Negative ng/mL (Cutoff=1000); Barbiturate Screen,Urine Negative ng/mL (Cutoff=200); Benzodiazepines Screen,Urine Negative ng/mL (Cutoff=200); Cannabinoid Screen,Urine Negative ng/mL (Cutoff = 50); Cocaine Screen,Urine Negative ng/mL (Cutoff= 300); Opiate Screen,Urine Negative ng/mL (Cutoff=300); Phencyclidine Screen,Urine Negative ng/mL (Cutoff=25)
[2020-06-16] MEDS: Famotidine 20 MG TABLET PO SCH (19:52)
[2020-06-16] MEDS: QUEtiapine Fumarate 100 MG TABLET PO SCH (19:53)
[2020-06-16] MEDS: Ipratropium/Albuterol Neb 3 ML IH SCH (21:54)
[2020-06-16] MEDS: Budesonide/Formoterol 160/4.5 1 PUFF INH IH SCH (21:54)
[2020-06-17] MEDS: Cefepime HCl 2,000 MG in Water for inj. (sterile) 20 ML IVP SCH ×3 (00:10→16:42)
[2020-06-17] MEDS: methylPREDNISolone 125 MG/2 ML VIAL IVP SCH ×4 (00:10→16:41)
[2020-06-17] MEDS: Ipratropium/Albuterol Neb 3 ML IH SCH ×4 (04:04→22:43)
[2020-06-17] MEDS: Azithromycin 500 MG in 0.9 % Sodium Chloride 250 ML IVPB SCH (05:16)
[2020-06-17 06:04] LABS: Basophils % 0.1 %; Mean Platelet Volume 9.9 fL (9.4-12.4); Red Cell Distribution Width 16.4 % (11.5-14.5)
[2020-06-17 06:06] LABS: Hematocrit 31.8 % (35.3-44.9); Hemoglobin 9.6 g/dL (11.5-15.4); Immature Granulocytes % 1.9 % (0-4); Lymphocytes # 0.5 K/mcL (0.6-4.6); Lymphocytes % 1.6 %; Mean Corpuscular HGB Conc 30.2 g/dL (31.6-35.5); Mean Corpuscular Hemoglobin 27.1 pg (28.0-33.3); Mean Corpuscular Volume 89.8 fL (83.0-100.0); Monocytes % 3.4 %; Neutrophils # 26.8 K/mcL (1.6-8.9); Platelet Count 335 K/mcL (140-400); Red Blood Count 3.54 M/mcL (3.82-4.97); White Blood Count 28.8 K/mcL (4.3-11.1)
[2020-06-17 06:19] LABS: Anisocytosis 1+ (Not Present); Platelet Estimate Normal (Normal)
[2020-06-17 06:24] LABS: BUN/Creatinine Ratio 22 (6-26); Blood Urea Nitrogen 14 mg/dL (6-20); Calcium 8.7 mg/dL (8.6-10.3); Carbon Dioxide 21 mEq/L (23-29); Chloride 109 mEq/L (98-107); Glucose 190 mg/dL (70-105); Osmolality,Calculated 292 (280-300); Potassium 3.5 mEq/L (3.5-5.1); Sodium 138 mEq/L (136-145); eGFR For African Americans > 60 (> 60); eGFR For Non-African Americans > 60 (> 60)
[2020-06-17] MEDS ORDERED: predniSONE 20 MG TABLET PO SCH (09:00)
[2020-06-17] MEDS: Venlafaxine XR (24 HR) 150 MG CAP.ER.24H PO SCH (09:21)
[2020-06-17] MEDS: Venlafaxine XR (24 HR) 75 MG CAP.ER.24H PO SCH (09:21)
[2020-06-17] MEDS: Gabapentin 400 MG CAPSULE PO SCH ×4 (09:21→19:50)
[2020-06-17] MEDS: Famotidine 20 MG TABLET PO SCH ×2 (09:22→19:50)
[2020-06-17] MEDS: Vancomycin 1,500 MG/265 ML IV.SOLN IVPB SCH ×2 (10:50→13:59)
[2020-06-17] MEDS: Budesonide/Formoterol 160/4.5 1 PUFF INH IH SCH ×2 (10:52→22:43)
[2020-06-17] MEDS ORDERED: Ibuprofen 400 MG TABLET PO PRN (12:11)
[2020-06-17] MEDS: tiZANidine 4 MG TABLET PO PRN (12:13)
[2020-06-17] MEDS: Heparin 25,000UNIT/250ML 1/2NS 25,000 UNIT/250 ML IV.SOLN IVC SCH (17:54)
[2020-06-17] MEDS: QUEtiapine Fumarate 100 MG TABLET PO SCH (19:50)
[2020-06-17] MEDS: Vancomycin 1,750 MG/517.5 ML IV.SOLN IVPB SCH (22:02)
[2020-06-18] MEDS: Cefepime HCl 2,000 MG in Water for inj. (sterile) 20 ML IVP SCH ×3 (00:35→17:00)
[2020-06-18] MEDS: methylPREDNISolone 125 MG/2 ML VIAL IVP SCH ×4 (00:42→17:00)
[2020-06-18 04:20] LABS: Nucleated Red Blood Cells 0.1 /100 WBC (0)
[2020-06-18 04:22] LABS: Hematocrit 29.7 % (35.3-44.9); Hemoglobin 9.6 g/dL (11.5-15.4); Mean Corpuscular HGB Conc 32.3 g/dL (31.6-35.5); Mean Corpuscular Hemoglobin 29.2 pg (28.0-33.3); Mean Corpuscular Volume 90.3 fL (83.0-100.0); Platelet Count 346 K/mcL (140-400); Red Blood Count 3.29 M/mcL (3.82-4.97); Red Cell Distribution Width 16.6 % (11.5-14.5)
[2020-06-18 04:25] LABS: BUN/Creatinine Ratio 25 (6-26); Blood Urea Nitrogen 17 mg/dL (6-20); Calcium 8.5 mg/dL (8.6-10.3); Carbon Dioxide 21 mEq/L (23-29); Chloride 108 mEq/L (98-107); Glucose 160 mg/dL (70-105); Magnesium 1.9 mg/dL (1.6-2.6); Osmolality,Calculated 289 (280-300); Potassium 3.5 mEq/L (3.5-5.1); Sodium 137 mEq/L (136-145); eGFR For African Americans > 60 (> 60); eGFR For Non-African Americans > 60 (> 60)
[2020-06-18] MEDS: Ipratropium/Albuterol Neb 3 ML IH SCH ×4 (04:39→22:38)
[2020-06-18 05:02] LABS: Anisocytosis 1+ (Not Present); Lymphocytes # 0.6 K/mcL (0.6-4.6); Monocytes # 1.2 K/mcL (0.0-1.3); Neutrophils # 28.2 K/mcL (1.6-8.9); Platelet Estimate Normal (Normal); Toxic Granulation Present (Not Present); Toxic Vacuolation Present (Not Present)
[2020-06-18] MEDS: Azithromycin 500 MG in 0.9 % Sodium Chloride 250 ML IVPB SCH (05:57)
[2020-06-18] MEDS: Famotidine 20 MG TABLET PO SCH ×2 (08:51→19:48)
[2020-06-18] MEDS: Venlafaxine XR (24 HR) 75 MG CAP.ER.24H PO SCH (08:51)
[2020-06-18] MEDS: Gabapentin 400 MG CAPSULE PO SCH ×4 (08:52→19:48)
[2020-06-18] MEDS: Venlafaxine XR (24 HR) 150 MG CAP.ER.24H PO SCH (08:53)
[2020-06-18] MEDS: lisinopriL 20 MG TABLET PO SCH (10:00)
[2020-06-18] MEDS: amLODIPine 5 MG TABLET PO SCH (10:00)
[2020-06-18] MEDS: Budesonide/Formoterol 160/4.5 1 PUFF INH IH SCH ×2 (10:24→22:38)
[2020-06-18] MEDS: Vancomycin 1,750 MG/517.5 ML IV.SOLN IVPB SCH ×2 (10:38→22:31)
[2020-06-18] MEDS: Heparin 25,000UNIT/250ML 1/2NS 25,000 UNIT/250 ML IV.SOLN IVC SCH (11:56)
[2020-06-18] MEDS: tiZANidine 4 MG TABLET PO PRN (12:32)
[2020-06-18] MEDS: Aspirin Enteric Coated 81 MG Tablet PO SCH (13:04)
[2020-06-18] MEDS ORDERED: Nitroglycerin 0.4 MG TAB.SUBL SL ONE (18:27)
[2020-06-18] MEDS: Nitroglycerin 0.4 MG TAB.SUBL SL PRN ×2 (18:29→18:34)
[2020-06-18] MEDS ORDERED: Morphine Sulfate 2 MG/ML SYRINGE IVP ONE (18:44)
[2020-06-18] MEDS: QUEtiapine Fumarate 100 MG TABLET PO SCH (19:47)
[2020-06-19] MEDS: methylPREDNISolone 125 MG/2 ML VIAL IVP SCH ×5 (00:15→23:52)
[2020-06-19] MEDS: Cefepime HCl 2,000 MG in Water for inj. (sterile) 20 ML IVP SCH ×4 (00:15→23:53)
[2020-06-19] MEDS: Ipratropium/Albuterol Neb 3 ML IH SCH ×4 (03:57→21:56)
[2020-06-19] MEDS: *HR* Heparin 5,000 UNIT/ML VIAL IVP PRN (05:38)
[2020-06-19] MEDS: Azithromycin 500 MG in 0.9 % Sodium Chloride 250 ML IVPB SCH (05:39)
[2020-06-19] MEDS: Heparin 25,000UNIT/250ML 1/2NS 25,000 UNIT/250 ML IV.SOLN IVC SCH (05:40)
[2020-06-19] MEDS: Aspirin Enteric Coated 81 MG Tablet PO SCH (08:54)
[2020-06-19] MEDS: Famotidine 20 MG TABLET PO SCH ×2 (08:54→21:02)
[2020-06-19] MEDS: lisinopriL 20 MG TABLET PO SCH (08:54)
[2020-06-19] MEDS: Venlafaxine XR (24 HR) 75 MG CAP.ER.24H PO SCH (08:54)
[2020-06-19] MEDS: Gabapentin 400 MG CAPSULE PO SCH ×4 (08:54→21:00)
[2020-06-19] MEDS: amLODIPine 5 MG TABLET PO SCH (08:54)
[2020-06-19] MEDS: Venlafaxine XR (24 HR) 150 MG CAP.ER.24H PO SCH (08:54)
[2020-06-19] MEDS ORDERED: amLODIPine 5 MG TABLET PO SCH (09:00)
[2020-06-19] MEDS ORDERED: Metoprolol XL (24 HR) Succ 25 MG TAB.ER.24H PO SCH (09:00)
[2020-06-19 09:48] LABS: Basophils # 0.1 K/mcL (0.0-0.2); Basophils % 0.4 %; Hematocrit 30.8 % (35.3-44.9); Hemoglobin 9.6 g/dL (11.5-15.4); Lymphocytes # 0.8 K/mcL (0.6-4.6); Lymphocytes % 3.3 %; Mean Corpuscular HGB Conc 31.2 g/dL (31.6-35.5); Mean Corpuscular Volume 89.8 fL (83.0-100.0); Monocytes # 1.1 K/mcL (0.0-1.3); Monocytes % 4.8 %; Neutrophils # 20.5 K/mcL (1.6-8.9); Nucleated Red Blood Cells 0.2 /100 WBC (0); Platelet Count 389 K/mcL (140-400); Red Blood Count 3.43 M/mcL (3.82-4.97); Red Cell Distribution Width 16.6 % (11.5-14.5); Segmented Neutrophils % 87.5 %; White Blood Count 23.4 K/mcL (4.3-11.1)
[2020-06-19 10:04] LABS: BUN/Creatinine Ratio 29 (6-26); Blood Urea Nitrogen 18 mg/dL (6-20); Carbon Dioxide 22 mEq/L (23-29); Chloride 104 mEq/L (98-107); Glucose 168 mg/dL (70-105); Magnesium 1.9 mg/dL (1.6-2.6); Osmolality,Calculated 290 (280-300); Phosphorous 2.9 mg/dL (2.7-4.5); Potassium 3.2 mEq/L (3.5-5.1); Sodium 137 mEq/L (136-145); eGFR For African Americans > 60 (> 60); eGFR For Non-African Americans > 60 (> 60)
[2020-06-19] MEDS: Budesonide/Formoterol 160/4.5 1 PUFF INH IH SCH ×2 (10:17→21:56)
[2020-06-19] MEDS: Vancomycin 1,750 MG/517.5 ML IV.SOLN IVPB SCH ×2 (11:26→21:50)
[2020-06-19] MEDS ORDERED: *HR* Promethazine 25 MG/ML VIAL IM ONE (16:18)
[2020-06-19] MEDS ORDERED: Morphine Sulfate 2 MG/ML SYRINGE IVP ONE (16:32)
[2020-06-19] MEDS ORDERED: Furosemide 20 MG/2 ML VIAL IVP SCH (21:00)
[2020-06-19] MEDS ORDERED: Sennosides/Docusate Sodium TABLET PO SCH (21:00)
[2020-06-19] MEDS: QUEtiapine Fumarate 100 MG TABLET PO SCH (21:01)
[2020-06-20 01:16] VITALS: BP 146/96
== END 2020-06-20 02:20 | disposition short-term general hospital (02) | DRG 720 ==
LOC: ICNU 21:11 → EMEROOARM 21:11 → ICNU 06-16 04:17 → SUATTDRO 06-16 04:30 → 2NNU 06-17 17:51
PROVIDERS: ADMIT Pharmacist; ATTEND Internal Medicine

== ENCOUNTER 2020-09-21 15:49 | Observation (INO) ==
[2020-09-21 17:06] LABS: Basophils % 0.4 %; Eosinophils % 1.6 %; Hematocrit 41.1 % (35.3-44.9); Hemoglobin 12.6 g/dL (11.5-15.4); Immature Granulocytes % 0.5 % (0-4); Lymphocytes # 1.4 K/mcL (0.6-4.6); Mean Corpuscular HGB Conc 30.7 g/dL (31.6-35.5); Mean Corpuscular Hemoglobin 27.9 pg (28.0-33.3); Mean Corpuscular Volume 90.9 fL (83.0-100.0); Mean Platelet Volume 8.7 fL (9.4-12.4); Monocytes % 7.9 %; Neutrophils # 10.3 K/mcL (1.6-8.9); Platelet Count 356 K/mcL (140-400); Red Blood Count 4.52 M/mcL (3.82-4.97); Red Cell Distribution Width 14.8 % (11.5-14.5); Segmented Neutrophils % 78.6 %; White Blood Count 13.1 K/mcL (4.3-11.1)
[2020-09-21 17:07] LABS: Basophils # 0.1 K/mcL (0.0-0.2); Eosinophils # 0.2 K/mcL (0.0-0.6)
[2020-09-21 17:09] LABS: Amorphous Sediment,Urine Few per hpf (None-Few); Bacteria,Urine Few per hpf (None-Few); Bilirubin,Urine Negative (Negative); Blood,Urine Negative (Negative); Clarity,Urine Turbid (Clear); Color,Urine Yellow (Yellow); Glucose,Urine (UA) Normal (Normal); Hyaline Casts,Urine Many per lpf (None Seen); Ketones,Urine Negative (Negative); Leukocyte Esterase,Urine Large (Negative); Mucus,Urine Few per lpf (None-Few); Nitrite,Urine Negative (Negative); PH,Urine 5.5 pH Units (5.0-8.0); Protein,Urine 50 mg/dL (Neg-Trace); Specific Gravity,Urine 1.027 (1.010-1.025); Squamous Epithelial Cell,Urine Many per hpf (None-Few); WBC,Urine 15-30 per hpf (0-3)
[2020-09-21 17:14] LABS: Amphetamine Screen,Urine Negative ng/mL (Cutoff=1000); Barbiturate Screen,Urine Negative ng/mL (Cutoff=200); Benzodiazepines Screen,Urine Negative ng/mL (Cutoff=200); Cannabinoid Screen,Urine Positive ng/mL (Cutoff = 50); Cocaine Screen,Urine Negative ng/mL (Cutoff= 300); Opiate Screen,Urine Negative ng/mL (Cutoff=300); Phencyclidine Screen,Urine Negative ng/mL (Cutoff=25)
[2020-09-21 17:26] LABS: Acetaminophen < 10 mcg/mL (10-20); BUN/Creatinine Ratio 15 (6-26); Blood Urea Nitrogen 29 mg/dL (6-20); Carbon Dioxide 21 mEq/L (23-29); Chloride 103 mEq/L (98-107); Ethanol < 10 mg/dL (Less than 10); Glucose 85 mg/dL (70-105); Osmolality,Calculated 283 (280-300); Potassium 3.8 mEq/L (3.5-5.1); Salicylate < 2.5 mg/dL (15.0-30.0); Sodium 134 mEq/L (136-145); Troponin I < 0.03 ng/mL (< 0.04); eGFR For African Americans 34 (> 60); eGFR For Non-African Americans 28 (> 60)
[2020-09-21] MEDS ORDERED: 0.9 % Sodium Chloride 1,000 ML IVC ONE (17:30)
[2020-09-21] MEDS ORDERED: cefTRIAXone 1,000 MG in Water for inj. (sterile) 10 ML IVP ONE (17:33)
[2020-09-21 17:50] LABS: Adenovirus Not Detected (Not Detect); Bordetella Pertussis Not Detected (Not Detect); Chlamydophila pneumoniae Not Detected (Not Detect); Coronavirus 229E Not Detected (Not Detect); Coronavirus HKU1 Not Detected (Not Detect); Coronavirus NL63 Not Detected (Not Detect); Coronavirus OC43 Not Detected (Not Detect); Human Metapneumovirus Not Detected (Not Detect); Human Rhinovirus/Enterovirus Not Detected (Not Detect); Influenza A Subtype 2009 H1 Not Detected (Not Detect); Influenza B Not Detected (Not Detect); Mycoplasma pneumoniae Not Detected (Not Detect); Parainfluenza Virus 1 Not Detected (Not Detect); Parainfluenza Virus 2 Not Detected (Not Detect); Parainfluenza Virus 3 Not Detected (Not Detect); Parainfluenza Virus 4 Not Detected (Not Detect); Respiratory Syncytial Virus Not Detected (Not Detect); SARS-CoV-2 Not Detected (Not Detect)
[2020-09-21 19:06] LABS: Creatine Kinase 68 Units/L (30-223)
[2020-09-21] MEDS ORDERED: Naloxone 0.4 MG/ML INJ IVP PRN (19:31)
[2020-09-21] MEDS ORDERED: Ondansetron 4 MG/2 ML VIAL IVP PRN (19:31)
[2020-09-21] MEDS ORDERED: 0.9 % Sodium Chloride 1,000 ML IVC SCH (19:45)
[2020-09-21] MEDS: *HR* Heparin 5,000 UNIT/ML VIAL SQ SCH (21:25)
[2020-09-21 22:54] LABS: ABG Base Excess -5 mEq/L (-2 to 3); ABG HCO3 23 mEq/L (21-27); ABG Oxygen Saturation 92 % (95-98); ABG PCO2 55 mmHg (35-45); ABG PH 7.24 pH Units (7.32-7.45); ABG PO2 76 mmHg (85-104); ABG TCO2 25 mEq/L (20-26)
[2020-09-22] MEDS: *HR* Heparin 5,000 UNIT/ML VIAL SQ SCH ×3 (05:11→20:09)
[2020-09-22 06:31] LABS: Hematocrit 39.5 % (35.3-44.9); Hemoglobin 11.6 g/dL (11.5-15.4); Mean Corpuscular HGB Conc 29.4 g/dL (31.6-35.5); Mean Corpuscular Volume 92.1 fL (83.0-100.0); Mean Platelet Volume 9.9 fL (9.4-12.4); Platelet Count 274 K/mcL (140-400); Red Blood Count 4.29 M/mcL (3.82-4.97); Red Cell Distribution Width 14.8 % (11.5-14.5)
[2020-09-22 06:56] LABS: BUN/Creatinine Ratio 23 (6-26); Blood Urea Nitrogen 25 mg/dL (6-20); Calcium 8.3 mg/dL (8.6-10.3); Carbon Dioxide 18 mEq/L (23-29); Chloride 111 mEq/L (98-107); Glucose 81 mg/dL (70-105); Magnesium 2.4 mg/dL (1.6-2.6); Osmolality,Calculated 285 (280-300); Phosphorous 3.8 mg/dL (2.7-4.5); Potassium 4.6 mEq/L (3.5-5.1); Sodium 136 mEq/L (136-145); eGFR For African Americans > 60 (> 60); eGFR For Non-African Americans 55 (> 60)
[2020-09-22] MEDS ORDERED: tiZANidine 4 MG TABLET PO PRN (08:56)
[2020-09-22] MEDS ORDERED: (Buprenorphine Hcl/Naloxone Hcl [Buprenorphin-Naloxon SL SCH (09:00)
[2020-09-22 09:30] LABS: ABG Base Excess -3 mEq/L (-2 to 3); ABG HCO3 23 mEq/L (21-27); ABG Oxygen Saturation 88 % (95-98); ABG PCO2 45 mmHg (35-45); ABG PH 7.31 pH Units (7.32-7.45); ABG PO2 59 mmHg (85-104); ABG TCO2 24 mEq/L (20-26)
[2020-09-22] MEDS: Venlafaxine XR (24 HR) 150 MG CAP.ER.24H PO SCH (10:59)
[2020-09-22] MEDS: Venlafaxine XR (24 HR) 75 MG CAP.ER.24H PO SCH (10:59)
[2020-09-22] MEDS: *HR* Buprenorphine HCl 8 MG TAB.SUBL SL SCH ×2 (10:59→20:09)
[2020-09-22] MEDS: Gabapentin 400 MG CAPSULE PO SCH ×4 (10:59→20:09)
[2020-09-22] MEDS: Famotidine 20 MG TABLET PO SCH ×2 (11:00→20:09)
[2020-09-22] MEDS: cefTRIAXone 1,000 MG in Water for inj. (sterile) 10 ML IVP SCH (16:05)
[2020-09-22] MEDS ORDERED: QUEtiapine Fumarate 100 MG TABLET PO SCH (21:00)
[2020-09-23] MEDS ORDERED: Ipratropium/Albuterol Neb 3 ML IH ONE (00:04)
[2020-09-23] MEDS ORDERED: 0.9 % Sodium Chloride 500 ML ONE (03:02)
[2020-09-23] MEDS ORDERED: 0.9 % Sodium Chloride 500 ML IVC ONE (03:13)
[2020-09-23 04:49] LABS: ABG Base Excess 1 mEq/L (-2 to 3); ABG HCO3 28 mEq/L (21-27); ABG Oxygen Saturation 90 % (95-98); ABG PCO2 51 mmHg (35-45); ABG PH 7.34 pH Units (7.32-7.45); ABG PO2 63 mmHg (85-104); ABG TCO2 29 mEq/L (20-26)
[2020-09-23] MEDS: *HR* Heparin 5,000 UNIT/ML VIAL SQ SCH (05:00)
[2020-09-23 06:18] LABS: Basophils % 0.4 %; Eosinophils # 0.2 K/mcL (0.0-0.6); Eosinophils % 2.5 %; Hematocrit 38.7 % (35.3-44.9); Hemoglobin 11.9 g/dL (11.5-15.4); Immature Granulocytes % 0.4 % (0-4); Lymphocytes # 1.9 K/mcL (0.6-4.6); Mean Corpuscular HGB Conc 30.7 g/dL (31.6-35.5); Mean Corpuscular Hemoglobin 27.5 pg (28.0-33.3); Mean Corpuscular Volume 89.6 fL (83.0-100.0); Mean Platelet Volume 9.3 fL (9.4-12.4); Monocytes # 0.8 K/mcL (0.0-1.3); Monocytes % 10.3 %; Platelet Count 312 K/mcL (140-400); Red Blood Count 4.32 M/mcL (3.82-4.97); Red Cell Distribution Width 14.4 % (11.5-14.5); Segmented Neutrophils % 62.4 %
[2020-09-23 06:36] LABS: Magnesium 1.7 mg/dL (1.6-2.6); Phosphorous 2.7 mg/dL (2.7-4.5)
[2020-09-23 06:38] LABS: BUN/Creatinine Ratio 18 (6-26); Blood Urea Nitrogen 14 mg/dL (6-20); Calcium 8.8 mg/dL (8.6-10.3); Carbon Dioxide 23 mEq/L (23-29); Chloride 107 mEq/L (98-107); Glucose 85 mg/dL (70-105); Osmolality,Calculated 280 (280-300); Potassium 4.2 mEq/L (3.5-5.1); Sodium 135 mEq/L (136-145); eGFR For African Americans > 60 (> 60); eGFR For Non-African Americans > 60 (> 60)
[2020-09-23] MEDS: Venlafaxine XR (24 HR) 150 MG CAP.ER.24H PO SCH (07:34)
[2020-09-23] MEDS: Venlafaxine XR (24 HR) 75 MG CAP.ER.24H PO SCH (07:35)
[2020-09-23] MEDS: Famotidine 20 MG TABLET PO SCH (07:35)
[2020-09-23] MEDS: *HR* Buprenorphine HCl 8 MG TAB.SUBL SL SCH (07:35)
[2020-09-23] MEDS: Gabapentin 400 MG CAPSULE PO SCH (07:35)
[2020-09-23] MEDS: cefTRIAXone 1,000 MG in Water for inj. (sterile) 10 ML IVP SCH (07:36)
[2020-09-23] MEDS ORDERED: Furosemide 20 MG TABLET PO SCH (09:00)
[2020-09-23 11:11] VITALS: BP 113/75
== END 2020-09-23 13:27 | disposition home or self-care (01) ==
LOC: 3BNU 15:49 → EMEROOARM 15:49 → SUATTDRO 19:19 → 3BNU 20:30
PROVIDERS: ADMIT Student in an Organized Health Care Education/Training Program; ATTEND Internal Medicine

== ENCOUNTER 2021-04-08 15:01 | Observation (INO) ==
[2021-04-08 16:09] LABS: Basophils # 0.1 K/mcL (0.0-0.2); Basophils % 0.5 %; Eosinophils # 0.4 K/mcL (0.0-0.6); Eosinophils % 4.3 %; Hematocrit 31.1 % (35.3-44.9); Hemoglobin 10.5 g/dL (11.5-15.4); Immature Granulocytes % 0.4 % (0-4); Lymphocytes # 2.3 K/mcL (0.6-4.6); Lymphocytes % 23.6 %; Mean Corpuscular HGB Conc 33.8 g/dL (31.6-35.5); Mean Corpuscular Hemoglobin 30.5 pg (28.0-33.3); Mean Corpuscular Volume 90.4 fL (83.0-100.0); Mean Platelet Volume 9.5 fL (9.4-12.4); Monocytes % 9.9 %; Neutrophils # 5.9 K/mcL (1.6-8.9); Platelet Count 432 K/mcL (140-400); Red Blood Count 3.44 M/mcL (3.82-4.97); Red Cell Distribution Width 14.1 % (11.5-14.5); Segmented Neutrophils % 61.3 %; White Blood Count 9.6 K/mcL (4.3-11.1)
[2021-04-08 16:21] LABS: BUN/Creatinine Ratio 10 (6-26); Blood Urea Nitrogen 7 mg/dL (6-20); Carbon Dioxide 22 mEq/L (23-29); Chloride 112 mEq/L (98-107); Glucose 105 mg/dL (70-105); Osmolality,Calculated 290 (280-300); Potassium 3.4 mEq/L (3.5-5.1); Sodium 141 mEq/L (136-145); eGFR For African Americans > 60 (> 60); eGFR For Non-African Americans > 60 (> 60)
[2021-04-08] MEDS ORDERED: Morphine Sulfate 2 MG/ML SYRINGE IVP ONE (19:08)
[2021-04-08] MEDS ORDERED: Vancomycin 2,000 MG/520 ML IV.SOLN IVPB ONE (19:09)
[2021-04-08] MEDS ORDERED: Vancomycin 1,500 MG/265 ML IV.SOLN IVPB ONE (20:00)
[2021-04-08] MEDS ORDERED: Ondansetron 4 MG/2 ML VIAL IVP ONE (20:16)
[2021-04-08] MEDS ORDERED: Cefepime HCl 2,000 MG in Water for inj. (sterile) 20 ML IVP ONE (20:20)
[2021-04-08] MEDS ORDERED: Naloxone 0.4 MG/ML INJ IVP PRN (23:44)
[2021-04-08] MEDS ORDERED: Melatonin 3 MG TABLET PO PRN (23:44)
[2021-04-08] MEDS ORDERED: Acetaminophen 325 MG TABLET PO PRN (23:44)
[2021-04-09 01:52] LABS: Basophils # 0.1 K/mcL (0.0-0.2); Basophils % 0.4 %; Eosinophils # 0.4 K/mcL (0.0-0.6); Eosinophils % 3.6 %; Hematocrit 33.7 % (35.3-44.9); Hemoglobin 10.8 g/dL (11.5-15.4); Immature Granulocytes % 0.4 % (0-4); Lymphocytes # 2.6 K/mcL (0.6-4.6); Lymphocytes % 21.3 %; Mean Corpuscular Hemoglobin 29.7 pg (28.0-33.3); Mean Corpuscular Volume 92.6 fL (83.0-100.0); Mean Platelet Volume 9.4 fL (9.4-12.4); Monocytes # 1.2 K/mcL (0.0-1.3); Monocytes % 9.4 %; Platelet Count 438 K/mcL (140-400); Red Blood Count 3.64 M/mcL (3.82-4.97); Segmented Neutrophils % 64.9 %; White Blood Count 12.3 K/mcL (4.3-11.1)
[2021-04-09 02:13] LABS: Alanine Aminotransferase 6 Units/L (7-52); Albumin 3.5 g/dL (3.5-5.7); Albumin/Globulin Ratio 1.2 (1.1-2.2); Alkaline Phosphatase 62 Units/L (34-104); Aspartate Amino Transferase 10 Units/L (13-39); BUN/Creatinine Ratio 9 (6-26); Bilirubin,Total 0.3 mg/dL (0.3-1.0); Blood Urea Nitrogen 6 mg/dL (6-20); Calcium 9.1 mg/dL (8.6-10.3); Carbon Dioxide 22 mEq/L (23-29); Chloride 110 mEq/L (98-107); Glucose 82 mg/dL (70-105); Magnesium 1.5 mg/dL (1.6-2.6); Osmolality,Calculated 287 (280-300); Phosphorous 4.6 mg/dL (2.7-4.5); Potassium 3.4 mEq/L (3.5-5.1); Sodium 140 mEq/L (136-145); Total Protein 6.5 g/dL (6.4-8.9); eGFR For African Americans > 60 (> 60); eGFR For Non-African Americans > 60 (> 60)
[2021-04-09] MEDS ORDERED: Magnesium Sulfate 1 GM/102 ML PIGGYBACK IVPB ONE (03:45)
[2021-04-09] MEDS ORDERED: Potassium Chloride 40 MEQ, Lidocaine 1% 2 ML in 0.9 % Sodium Chloride 500 ML IVPB ONE (04:00)
[2021-04-09] MEDS ORDERED: Gadolinium Contrast Agent (WT Based) IV PRN (08:59)
[2021-04-09] MEDS ORDERED: Cefepime HCl 2,000 MG in Water for inj. (sterile) 20 ML IVP SCH (09:00)
[2021-04-09] MEDS ORDERED: Vancomycin 1,500 MG/265 ML IV.SOLN IVPB SCH (11:00)
[2021-04-09] MEDS ORDERED: GADOBUTROL 30 MMOL/30 ML VIAL IVP ONE (11:14)
[2021-04-09] MEDS: Ondansetron 4 MG/2 ML VIAL IVP PRN ×2 (12:51→20:30)
[2021-04-09] MEDS: Vancomycin 1,500 MG/265 ML IV.SOLN IVPB SCH (16:01)
[2021-04-09] MEDS: Cefepime HCl 2,000 MG in Water for inj. (sterile) 20 ML IVP SCH (16:01)
[2021-04-09] MEDS ORDERED: tiZANidine 4 MG TABLET PO PRN (17:05)
[2021-04-09] MEDS: Gabapentin 400 MG CAPSULE PO SCH ×2 (17:17→20:08)
[2021-04-09] MEDS: QUEtiapine Fumarate 100 MG TABLET PO SCH (20:08)
[2021-04-10] MEDS: Vancomycin 1,500 MG/265 ML IV.SOLN IVPB SCH ×2 (02:43→17:47)
[2021-04-10] MEDS: Cefepime HCl 2,000 MG in Water for inj. (sterile) 20 ML IVP SCH ×2 (04:08→15:56)
[2021-04-10 05:08] LABS: Alanine Aminotransferase 6 Units/L (7-52); Albumin 3.3 g/dL (3.5-5.7); Albumin/Globulin Ratio 1.2 (1.1-2.2); Alkaline Phosphatase 59 Units/L (34-104); Aspartate Amino Transferase 8 Units/L (13-39); BUN/Creatinine Ratio 12 (6-26); Bilirubin,Total 0.3 mg/dL (0.3-1.0); Blood Urea Nitrogen 8 mg/dL (6-20); C-Reactive Protein 42 mg/L (Less than 10); Calcium 8.8 mg/dL (8.6-10.3); Carbon Dioxide 22 mEq/L (23-29); Chloride 108 mEq/L (98-107); Globulin 2.8 g/dL (2.4-3.5); Glucose 122 mg/dL (70-105); Osmolality,Calculated 286 (280-300); Potassium 3.3 mEq/L (3.5-5.1); Sodium 138 mEq/L (136-145); Total Protein 6.1 g/dL (6.4-8.9); eGFR For African Americans > 60 (> 60); eGFR For Non-African Americans > 60 (> 60)
[2021-04-10] MEDS: Gabapentin 400 MG CAPSULE PO SCH ×3 (07:34→20:47)
[2021-04-10] MEDS: amLODIPine 5 MG TABLET PO SCH (11:33)
[2021-04-10] MEDS: lisinopriL 20 MG TABLET PO SCH (11:33)
[2021-04-10] MEDS: Ondansetron 4 MG/2 ML VIAL IVP PRN (17:45)
[2021-04-10] MEDS: QUEtiapine Fumarate 100 MG TABLET PO SCH (20:47)
[2021-04-11 01:56] LABS: Alanine Aminotransferase 4 Units/L (7-52); Albumin 3.5 g/dL (3.5-5.7); Albumin/Globulin Ratio 1.2 (1.1-2.2); Alkaline Phosphatase 59 Units/L (34-104); Aspartate Amino Transferase 9 Units/L (13-39); BUN/Creatinine Ratio 14 (6-26); Bilirubin,Total 0.3 mg/dL (0.3-1.0); Blood Urea Nitrogen 9 mg/dL (6-20); Calcium 9.1 mg/dL (8.6-10.3); Carbon Dioxide 20 mEq/L (23-29); Chloride 109 mEq/L (98-107); Glucose 95 mg/dL (70-105); Osmolality,Calculated 282 (280-300); Potassium 3.7 mEq/L (3.5-5.1); Sodium 137 mEq/L (136-145); Total Protein 6.5 g/dL (6.4-8.9); eGFR For African Americans > 60 (> 60); eGFR For Non-African Americans > 60 (> 60)
[2021-04-11] MEDS: Vancomycin 1,500 MG/265 ML IV.SOLN IVPB SCH ×2 (03:42→16:21)
[2021-04-11] MEDS: Cefepime HCl 2,000 MG in Water for inj. (sterile) 20 ML IVP SCH ×2 (03:44→16:21)
[2021-04-11] MEDS: *HR* Enoxaparin 40 MG/0.4 ML SYRINGE SQ SCH (03:46)
[2021-04-11] MEDS: amLODIPine 5 MG TABLET PO SCH (08:06)
[2021-04-11] MEDS: Gabapentin 400 MG CAPSULE PO SCH ×4 (08:06→21:14)
[2021-04-11] MEDS: lisinopriL 20 MG TABLET PO SCH (08:06)
[2021-04-11] MEDS: Ondansetron 4 MG/2 ML VIAL IVP PRN ×2 (08:13→17:44)
[2021-04-11] MEDS: QUEtiapine Fumarate 100 MG TABLET PO SCH (21:14)
[2021-04-12] MEDS: Cefepime HCl 2,000 MG in Water for inj. (sterile) 20 ML IVP SCH (03:29)
[2021-04-12] MEDS: Vancomycin 1,500 MG/265 ML IV.SOLN IVPB SCH (03:30)
[2021-04-12] MEDS: *HR* Enoxaparin 40 MG/0.4 ML SYRINGE SQ SCH (03:33)
[2021-04-12] MEDS: lisinopriL 20 MG TABLET PO SCH (08:58)
[2021-04-12] MEDS: amLODIPine 5 MG TABLET PO SCH (08:58)
[2021-04-12] MEDS: Gabapentin 400 MG CAPSULE PO SCH ×2 (08:58→12:00)
[2021-04-12 10:52] VITALS: BP 135/89; PULSE 96; TEMP 98.1; O2SAT 98
[2021-04-12] MEDS: Ondansetron 4 MG/2 ML VIAL IVP PRN (11:59)
[2021-04-12 13:12] LABS: Alanine Aminotransferase 4 Units/L (7-52); Albumin 2.9 g/dL (3.5-5.7); Albumin/Globulin Ratio 1.4 (1.1-2.2); Alkaline Phosphatase 50 Units/L (34-104); Aspartate Amino Transferase 6 Units/L (13-39); BUN/Creatinine Ratio 16 (6-26); Bilirubin,Total 0.2 mg/dL (0.3-1.0); Blood Urea Nitrogen 7 mg/dL (6-20); Calcium 7.2 mg/dL (8.6-10.3); Carbon Dioxide 19 mEq/L (23-29); Chloride 114 mEq/L (98-107); Globulin 2.1 g/dL (2.4-3.5); Glucose 76 mg/dL (70-105); Osmolality,Calculated 285 (280-300); Sodium 139 mEq/L (136-145); eGFR For African Americans > 60 (> 60); eGFR For Non-African Americans > 60 (> 60)
== END 2021-04-12 15:14 | disposition home or self-care (01) ==
LOC: EMEROOARM 15:01 → 3BNU 15:01 → SUATTDRO 23:04 → 3BNU 23:38
PROVIDERS: ADMIT Family Medicine; ATTEND Registered Nurse

== ENCOUNTER 2021-09-16 11:55 | Inpatient (IN) ==
[2021-09-16] MEDS ORDERED: Isovue-370 500 ML BOTTLE IVP ONE (13:29)
[2021-09-16] MEDS ORDERED: Ketorolac 30 MG/ML VIAL IVP STA (13:43)
[2021-09-16] MEDS ORDERED: *HR* FentaNYL (PF) 100 MCG/2 ML VIAL IVP ONE (13:43)
[2021-09-16] MEDS ORDERED: ceFAZolin 2,000 MG in 0.9 % Sodium Chloride 100 ML IVPB ONE (13:45)
[2021-09-16] MEDS ORDERED: Vancomycin 1,500 MG/265 ML IV.SOLN IVPB ONE (14:00)
[2021-09-16 14:14] LABS: Basophils # 0.1 K/mcL (0.0-0.2); Basophils % 0.7 %; Eosinophils # 0.5 K/mcL (0.0-0.6); Eosinophils % 4.4 %; Hematocrit 37.3 % (35.3-44.9); Hemoglobin 12.2 g/dL (11.5-15.4); Immature Granulocytes % 0.3 % (0-4); Lymphocytes # 2.3 K/mcL (0.6-4.6); Lymphocytes % 20.3 %; Mean Corpuscular HGB Conc 32.7 g/dL (31.6-35.5); Mean Corpuscular Hemoglobin 30.1 pg (28.0-33.3); Mean Corpuscular Volume 92.1 fL (83.0-100.0); Mean Platelet Volume 10.1 fL (9.4-12.4); Monocytes # 0.4 K/mcL (0.0-1.3); Monocytes % 3.8 %; Neutrophils # 8.1 K/mcL (1.6-8.9); Platelet Count 454 K/mcL (140-400); Red Blood Count 4.05 M/mcL (3.82-4.97); Red Cell Distribution Width 14.4 % (11.5-14.5); Segmented Neutrophils % 70.5 %; White Blood Count 11.5 K/mcL (4.3-11.1)
[2021-09-16 14:33] LABS: BUN/Creatinine Ratio 11 (6-26); Blood Urea Nitrogen 8 mg/dL (6-20); Calcium 9.5 mg/dL (8.6-10.3); Carbon Dioxide 19 mEq/L (23-29); Chloride 109 mEq/L (98-107); Glucose 98 mg/dL (70-105); Osmolality,Calculated 282 (280-300); Potassium 3.9 mEq/L (3.5-5.1); Sodium 137 mEq/L (136-145); eGFR For African Americans > 60 (> 60); eGFR For Non-African Americans > 60 (> 60)
[2021-09-16] MEDS ORDERED: 0.9 % Sodium Chloride 1,000 ML IVC ONE (15:14)
[2021-09-16] MEDS ORDERED: Piperacillin/Tazobactam 3.375 GM in 0.9 % Sodium Chloride Mini Bag 100 ML IVPB ONE (16:31)
[2021-09-16] MEDS ORDERED: Naloxone 0.4 MG/ML INJ IVP PRN (16:35)
[2021-09-16] MEDS ORDERED: Ondansetron 4 MG/2 ML VIAL IVP PRN (16:35)
[2021-09-16] MEDS ORDERED: tiZANidine 4 MG TABLET PO PRN (16:58)
[2021-09-16] MEDS ORDERED: hydrOXYzine pamoate 25 MG CAPSULE PO PRN (16:58)
[2021-09-16] MEDS: Gabapentin 400 MG CAPSULE PO SCH (20:07)
[2021-09-16] MEDS: *HR* OxyCODONE Immed Rel 5 MG TABLET PO PRN (20:07)
[2021-09-16] MEDS: Ringers Solution, Lactated 1,000 ML IVC SCH (20:08)
[2021-09-17] MEDS: Piperacillin/Tazobactam 3.375 GM in 0.9 % Sodium Chloride Mini Bag 100 ML IVPB SCH ×4 (00:24→23:42)
[2021-09-17] MEDS: *HR* Heparin 5,000 UNIT/ML VIAL SQ SCH ×4 (00:24→23:42)
[2021-09-17 02:28] LABS: Basophils # 0.1 K/mcL (0.0-0.2); Basophils % 0.7 %; Eosinophils # 0.7 K/mcL (0.0-0.6); Eosinophils % 8.7 %; Hematocrit 35.7 % (35.3-44.9); Hemoglobin 11.6 g/dL (11.5-15.4); Immature Granulocytes % 0.2 % (0-4); Lymphocytes # 2.3 K/mcL (0.6-4.6); Lymphocytes % 26.5 %; Mean Corpuscular HGB Conc 32.5 g/dL (31.6-35.5); Mean Corpuscular Hemoglobin 30.5 pg (28.0-33.3); Mean Corpuscular Volume 93.9 fL (83.0-100.0); Monocytes # 0.6 K/mcL (0.0-1.3); Monocytes % 6.7 %; Neutrophils # 4.9 K/mcL (1.6-8.9); Platelet Count 404 K/mcL (140-400); Red Cell Distribution Width 14.6 % (11.5-14.5); Segmented Neutrophils % 57.2 %; White Blood Count 8.5 K/mcL (4.3-11.1)
[2021-09-17 02:46] LABS: BUN/Creatinine Ratio 10 (6-26); Blood Urea Nitrogen 6 mg/dL (6-20); Calcium 8.5 mg/dL (8.6-10.3); Carbon Dioxide 17 mEq/L (23-29); Chloride 115 mEq/L (98-107); Glucose 85 mg/dL (70-105); Magnesium 1.8 mg/dL (1.6-2.6); Osmolality,Calculated 279 (280-300); Potassium 3.9 mEq/L (3.5-5.1); Sodium 136 mEq/L (136-145); eGFR For African Americans > 60 (> 60); eGFR For Non-African Americans > 60 (> 60)
[2021-09-17] MEDS: Vancomycin 1,500 MG/265 ML IV.SOLN IVPB SCH ×2 (04:25→15:27)
[2021-09-17] MEDS: *HR* OxyCODONE Immed Rel 5 MG TABLET PO PRN ×3 (04:31→23:55)
[2021-09-17] MEDS: Gabapentin 400 MG CAPSULE PO SCH ×3 (08:16→20:15)
[2021-09-17] MEDS ORDERED: Cholecalciferol (D-3) 1,000 UNIT (25MCG) TABLET PO SCH (09:00)
[2021-09-17] MEDS ORDERED: lisinopriL 20 MG TABLET PO SCH (09:00)
[2021-09-17] MEDS: Ringers Solution, Lactated 1,000 ML IVC SCH (12:35)
[2021-09-17] MEDS ORDERED: Lidocaine -MPF 2% 5 ML VIAL ONE (15:07)
[2021-09-17] MEDS ORDERED: *HR* FentaNYL (PF) 100 MCG/2 ML VIAL ONE (15:07)
[2021-09-17] MEDS ORDERED: Lidocaine 1% 20 ML MDV ONE (15:26)
[2021-09-17] MEDS ORDERED: Ondansetron 4 MG/2 ML VIAL ONE (16:00)
[2021-09-17] MEDS ORDERED: Ketamine HCL *QUVA* 50mg (1mL) SYRINGE ONE (16:00)
[2021-09-17] MEDS ORDERED: *HR* Midazolam HCl 2 MG/2 ML VIAL ONE (16:00)
[2021-09-17] MEDS ORDERED: Acetaminophen IV 1,000 MG/100 ML BAG IVPB ONE (16:18)
[2021-09-17] MEDS ORDERED: *HR* HYDROMORPHONE 2 MG/ML VIAL ONE (16:45)
[2021-09-17] MEDS ORDERED: Ketorolac 30 MG/ML VIAL ONE (16:54)
[2021-09-17] MEDS ORDERED: Pregabalin 75 MG CAPSULE PO ONE (17:34)
[2021-09-17] MEDS ORDERED: *HR* HYDROmorphone (PF) 1 MG/ML SYRINGE IVP ONE (17:34)
[2021-09-17] MEDS ORDERED: *HR* OxyCODONE Immed Rel 5 MG TABLET PO PRN (17:35)
[2021-09-17] MEDS ORDERED: tiZANidine 4 MG TABLET PO ONE (17:36)
[2021-09-17] MEDS ORDERED: *HR* Midazolam HCl 2 MG/2 ML VIAL IVP PRN (18:14)
[2021-09-17] MEDS ORDERED: Ringers Solution, Lactated 1,000 ML IVC SCH (18:44)
[2021-09-17] MEDS ORDERED: Piperacillin/Tazobactam 3.375 GM in 0.9 % Sodium Chloride Mini Bag 100 ML IVPB ONE (18:44)
[2021-09-17] MEDS ORDERED: Ondansetron 4 MG/2 ML VIAL IVP PRN (18:44)
[2021-09-17] MEDS ORDERED: Naloxone 0.4 MG/ML INJ IVP PRN (18:44)
[2021-09-17] MEDS: hydrOXYzine pamoate 25 MG CAPSULE PO PRN (20:15)
[2021-09-18] MEDS: Vancomycin 1,500 MG/265 ML IV.SOLN IVPB SCH ×2 (03:14→15:33)
[2021-09-18] MEDS: *HR* Heparin 5,000 UNIT/ML VIAL SQ SCH ×3 (06:07→20:22)
[2021-09-18] MEDS: *HR* OxyCODONE Immed Rel 5 MG TABLET PO PRN ×3 (06:08→18:02)
[2021-09-18] MEDS: tiZANidine 4 MG TABLET PO PRN ×3 (06:08→22:05)
[2021-09-18 10:56] LABS: Basophils % 0.4 %; Eosinophils % 0.2 %; Immature Granulocytes % 0.6 % (0-4); Lymphocytes # 2.5 K/mcL (0.6-4.6); Lymphocytes % 21.9 %; Mean Corpuscular HGB Conc 32.7 g/dL (31.6-35.5); Mean Corpuscular Hemoglobin 29.6 pg (28.0-33.3); Mean Corpuscular Volume 90.6 fL (83.0-100.0); Mean Platelet Volume 9.9 fL (9.4-12.4); Monocytes # 0.7 K/mcL (0.0-1.3); Monocytes % 6.3 %; Platelet Count 377 K/mcL (140-400); Red Blood Count 3.31 M/mcL (3.82-4.97); Red Cell Distribution Width 14.5 % (11.5-14.5); Segmented Neutrophils % 70.6 %; White Blood Count 11.3 K/mcL (4.3-11.1)
[2021-09-18 10:57] LABS: Hemoglobin 9.8 g/dL (11.5-15.4)
[2021-09-18 11:17] LABS: BUN/Creatinine Ratio 9 (6-26); Blood Urea Nitrogen 7 mg/dL (6-20); Calcium 8.5 mg/dL (8.6-10.3); Carbon Dioxide 21 mEq/L (23-29); Chloride 109 mEq/L (98-107); Glucose 136 mg/dL (70-105); Osmolality,Calculated 280 (280-300); Potassium 3.5 mEq/L (3.5-5.1); Sodium 135 mEq/L (136-145); eGFR For African Americans > 60 (> 60); eGFR For Non-African Americans > 60 (> 60)
[2021-09-18] MEDS: Piperacillin/Tazobactam 3.375 GM in 0.9 % Sodium Chloride Mini Bag 100 ML IVPB SCH ×2 (11:34→15:33)
[2021-09-18] MEDS: Gabapentin 400 MG CAPSULE PO SCH ×3 (12:02→20:22)
[2021-09-18] MEDS: Cholecalciferol (D-3) 1,000 UNIT (25MCG) TABLET PO SCH (12:02)
[2021-09-18] MEDS: lisinopriL 20 MG TABLET PO SCH (12:03)
[2021-09-18] MEDS: Ketorolac 30 MG/ML VIAL IVP PRN ×2 (13:58→22:05)
[2021-09-18] MEDS: hydrOXYzine pamoate 25 MG CAPSULE PO PRN (20:21)
[2021-09-19] MEDS: Piperacillin/Tazobactam 3.375 GM in 0.9 % Sodium Chloride Mini Bag 100 ML IVPB SCH ×2 (00:46→07:38)
[2021-09-19] MEDS: Vancomycin 1,500 MG/265 ML IV.SOLN IVPB SCH (03:33)
[2021-09-19] MEDS: *HR* OxyCODONE Immed Rel 5 MG TABLET PO PRN ×2 (03:33→09:38)
[2021-09-19] MEDS: *HR* Heparin 5,000 UNIT/ML VIAL SQ SCH (05:44)
[2021-09-19 06:24] LABS: BUN/Creatinine Ratio 10 (6-26); Blood Urea Nitrogen 8 mg/dL (6-20); Calcium 8.5 mg/dL (8.6-10.3); Carbon Dioxide 21 mEq/L (23-29); Chloride 112 mEq/L (98-107); Glucose 91 mg/dL (70-105); Osmolality,Calculated 284 (280-300); Potassium 3.7 mEq/L (3.5-5.1); Sodium 138 mEq/L (136-145); eGFR For African Americans > 60 (> 60); eGFR For Non-African Americans > 60 (> 60)
[2021-09-19 06:32] LABS: Basophils % 0.6 %; Eosinophils # 0.3 K/mcL (0.0-0.6); Eosinophils % 4.1 %; Hematocrit 30.2 % (35.3-44.9); Hemoglobin 9.8 g/dL (11.5-15.4); Immature Granulocytes % 0.2 % (0-4); Lymphocytes % 47.8 %; Mean Corpuscular HGB Conc 32.5 g/dL (31.6-35.5); Mean Corpuscular Volume 92.4 fL (83.0-100.0); Mean Platelet Volume 10.1 fL (9.4-12.4); Monocytes # 0.5 K/mcL (0.0-1.3); Monocytes % 7.1 %; Neutrophils # 2.5 K/mcL (1.6-8.9); Platelet Count 362 K/mcL (140-400); Red Blood Count 3.27 M/mcL (3.82-4.97); Red Cell Distribution Width 14.6 % (11.5-14.5); Segmented Neutrophils % 40.2 %; White Blood Count 6.3 K/mcL (4.3-11.1)
[2021-09-19 07:11] VITALS: BP 126/89; PULSE 66; TEMP 98.1; O2SAT 97
[2021-09-19] MEDS: Gabapentin 400 MG CAPSULE PO SCH (07:36)
[2021-09-19] MEDS: tiZANidine 4 MG TABLET PO PRN (07:36)
[2021-09-19] MEDS: Cholecalciferol (D-3) 1,000 UNIT (25MCG) TABLET PO SCH (07:37)
[2021-09-19] MEDS: Ketorolac 30 MG/ML VIAL IVP PRN (07:37)
[2021-09-19] MEDS: lisinopriL 20 MG TABLET PO SCH (07:37)
== END 2021-09-19 11:00 | disposition home or self-care (01) | DRG 320 ==
LOC: EMEROOARM 11:55 → 4WAOSI 16:59
PROVIDERS: ADMIT Student in an Organized Health Care Education/Training Program; ATTEND Student in an Organized Health Care Education/Training Program

== ENCOUNTER 2022-04-23 19:06 | Inpatient (IN) ==
[2022-04-23] MEDS ORDERED: Iopamidol - 370 500 ML MLS IVP ONE (19:22)
[2022-04-23] MEDS ORDERED: cefTRIAXone 1,000 MG in 0.9 % Sodium Chloride 10 ML IVP ONE (19:22)
[2022-04-23] MEDS ORDERED: *HR* LORazepam 2 MG/ML VIAL IVP ONE (19:26)
[2022-04-23 19:41] LABS: Basophils # 0.1 K/mcL (0.0-0.2); Basophils % 0.4 %; Eosinophils # 0.1 K/mcL (0.0-0.6); Eosinophils % 0.3 %; Hematocrit 35.3 % (35.3-44.9); Hemoglobin 11.7 g/dL (11.5-15.4); Immature Granulocytes % 0.9 % (0-4); Lymphocytes # 1.2 K/mcL (0.6-4.6); Lymphocytes % 5.1 %; Mean Corpuscular HGB Conc 33.1 g/dL (31.6-35.5); Mean Corpuscular Volume 87.4 fL (83.0-100.0); Mean Platelet Volume 9.4 fL (9.4-12.4); Monocytes % 4.4 %; Neutrophils # 21.2 K/mcL (1.6-8.9); Platelet Count 344 K/mcL (140-400); Red Blood Count 4.04 M/mcL (3.82-4.97); Red Cell Distribution Width 14.4 % (11.5-14.5); Segmented Neutrophils % 88.9 %; White Blood Count 23.8 K/mcL (4.3-11.1)
[2022-04-23 19:42] LABS: Monocytes # 1.1 K/mcL (0.0-1.3)
[2022-04-23 19:48] LABS: INR 1.2; Prothrombin Time 13.4 Seconds (9.4-12.1)
[2022-04-23 19:50] LABS: Activated Partial Thrombo Time 37.9 Seconds (26.0-36.0)
[2022-04-23 20:00] LABS: Platelet Estimate Normal (Normal)
[2022-04-23 20:08] LABS: Alanine Aminotransferase 9 Units/L (7-52); Albumin/Globulin Ratio 1.3 (1.1-2.2); Alkaline Phosphatase 100 Units/L (34-104); Aspartate Amino Transferase 22 Units/L (13-39); BUN/Creatinine Ratio 12 (6-26); Bilirubin,Direct 0.1 mg/dL (0.0-0.2); Bilirubin,Indirect 0.3 mg/dL (0.0-1.0); Bilirubin,Total 0.4 mg/dL (0.3-1.0); Blood Urea Nitrogen 9 mg/dL (6-20); Calcium 8.9 mg/dL (8.6-10.3); Carbon Dioxide 20 mEq/L (23-29); Chloride 101 mEq/L (98-107); Globulin 3.2 g/dL (2.4-3.5); Glucose 112 mg/dL (70-105); Osmolality,Calculated 271 (280-300); Potassium 3.2 mEq/L (3.5-5.1); Sodium 131 mEq/L (136-145); Total Protein 7.2 g/dL (6.4-8.9); Troponin I < 0.03 ng/mL (< 0.04)
[2022-04-23 20:20] LABS: Amphetamine Screen,Urine Positive ng/mL (Cutoff=1000); Barbiturate Screen,Urine Negative ng/mL (Cutoff=200); Benzodiazepines Screen,Urine Negative ng/mL (Cutoff=200); Bilirubin,Urine Negative (Negative); Blood,Urine Negative (Negative); Cannabinoid Screen,Urine Positive ng/mL (Cutoff = 50); Clarity,Urine Clear (Clear); Cocaine Screen,Urine Negative ng/mL (Cutoff= 300); Color,Urine Colorless (Yellow); Glucose,Urine (UA) Normal (Normal); Ketones,Urine Negative (Negative); Leukocyte Esterase,Urine Moderate (Negative); Mucus,Urine Few per lpf (None-Few); Nitrite,Urine Negative (Negative); Opiate Screen,Urine Negative ng/mL (Cutoff=300); Phencyclidine Screen,Urine Negative ng/mL (Cutoff=25); Protein,Urine Negative (Neg-Trace); RBC,Urine 0-3 per hpf (0-3); Specific Gravity,Urine 1.006 (1.010-1.025); Squamous Epithelial Cell,Urine Few per hpf (None-Few); Urobilinogen,Urine Normal (Normal); WBC,Urine 0-3 per hpf (0-3)
[2022-04-23 21:06] LABS: ABG Base Excess -4 mEq/L (-2 to 3); ABG HCO3 21 mEq/L (21-27); ABG Oxygen Saturation 87 % (95-98); ABG PCO2 35 mmHg (35-45); ABG PH 7.38 pH Units (7.32-7.45); ABG PO2 53 mmHg (85-104); ABG TCO2 22 mEq/L (20-26)
[2022-04-23 21:32] LABS: Adenovirus Not Detected (Not Detect); Bordetella Pertussis Not Detected (Not Detect); Chlamydophila pneumoniae Not Detected (Not Detect); Coronavirus 229E Not Detected (Not Detect); Coronavirus HKU1 Not Detected (Not Detect); Coronavirus NL63 Not Detected (Not Detect); Coronavirus OC43 Not Detected (Not Detect); Human Metapneumovirus Not Detected (Not Detect); Human Rhinovirus/Enterovirus Not Detected (Not Detect); Influenza A Subtype 2009 H1 Not Detected (Not Detect); Influenza B Not Detected (Not Detect); Mycoplasma pneumoniae Not Detected (Not Detect); Parainfluenza Virus 1 Not Detected (Not Detect); Parainfluenza Virus 2 Not Detected (Not Detect); Parainfluenza Virus 3 Not Detected (Not Detect); Parainfluenza Virus 4 Not Detected (Not Detect); Respiratory Syncytial Virus Not Detected (Not Detect); SARS-CoV-2 Not Detected (Not Detect)
[2022-04-23] MEDS ORDERED: Azithromycin 500 MG in 0.9 % Sodium Chloride 250 ML IVPB ONE (21:37)
[2022-04-23] MEDS ORDERED: 0.9 % Sodium Chloride 1,000 ML IV ONE (21:46)
[2022-04-23] MEDS ORDERED: Naloxone 0.4 MG/ML INJ IVP PRN (22:01)
[2022-04-23] MEDS ORDERED: Ringers Solution, Lactated 1,000 ML IVC ONE (23:26)
[2022-04-23] MEDS: Acetaminophen 325 MG TABLET PO PRN (23:44)
[2022-04-24] MEDS ORDERED: Ipratropium/Albuterol Neb 3 ML IH PRN (02:15)
[2022-04-24 02:49] LABS: Basophils # 0.1 K/mcL (0.0-0.2); Basophils % 0.3 %; Eosinophils % 0.1 %; Hematocrit 34.2 % (35.3-44.9); Hemoglobin 11.1 g/dL (11.5-15.4); Immature Granulocytes % 0.9 % (0-4); Lymphocytes # 2.7 K/mcL (0.6-4.6); Mean Corpuscular HGB Conc 32.5 g/dL (31.6-35.5); Mean Corpuscular Hemoglobin 28.8 pg (28.0-33.3); Mean Corpuscular Volume 88.6 fL (83.0-100.0); Mean Platelet Volume 10.1 fL (9.4-12.4); Monocytes # 1.1 K/mcL (0.0-1.3); Monocytes % 4.4 %; Neutrophils # 20.5 K/mcL (1.6-8.9); Platelet Count 310 K/mcL (140-400); Red Blood Count 3.86 M/mcL (3.82-4.97); Red Cell Distribution Width 14.6 % (11.5-14.5); Segmented Neutrophils % 83.3 %; White Blood Count 24.6 K/mcL (4.3-11.1)
[2022-04-24 02:56] LABS: BUN/Creatinine Ratio 10 (6-26); Blood Urea Nitrogen 7 mg/dL (6-20); Carbon Dioxide 21 mEq/L (23-29); Chloride 108 mEq/L (98-107); Glucose 117 mg/dL (70-105); Magnesium 1.7 mg/dL (1.6-2.6); Osmolality,Calculated 279 (280-300); Potassium 3.3 mEq/L (3.5-5.1); Sodium 135 mEq/L (136-145)
[2022-04-24] MEDS: *HR* Enoxaparin 40 MG/0.4 ML SYRINGE SQ SCH (06:16)
[2022-04-24] MEDS ORDERED: Saliva Stimulant 44.3ml BOTTLE PO PRN (06:25)
[2022-04-24] MEDS: Chlorhexidine Rinse 15 ML MOUTHWASH MM SCH ×2 (08:45→20:05)
[2022-04-24] MEDS: cefTRIAXone 2,000 MG in 0.9 % Sodium Chloride 20 ML IVP SCH (08:46)
[2022-04-24] MEDS: Lactobacillus 1 EACH CAP.SPRINK PO SCH ×2 (08:47→20:04)
[2022-04-24] MEDS: Artificial Tears SOLN 15 ML BOTTLE BOTH EYES SCH ×2 (08:47→20:07)
[2022-04-24] MEDS: Ipratropium/Albuterol Neb 3 ML IH SCH ×3 (10:25→21:51)
[2022-04-24] MEDS: BuPROPion XL (24 HR) 150 MG TABLET PO SCH (14:20)
[2022-04-24] MEDS: Ondansetron 4 MG/2 ML VIAL IVP PRN (14:52)
[2022-04-24] MEDS: Gabapentin 400 MG CAPSULE PO SCH ×2 (16:33→20:04)
[2022-04-24] MEDS: Azithromycin 500 MG in 0.9 % Sodium Chloride 250 ML IVPB SCH (20:02)
[2022-04-24] MEDS: tiZANidine 4 MG TABLET PO PRN (20:03)
[2022-04-24] MEDS: Benzonatate 100 MG CAPSULE PO PRN (20:03)
[2022-04-24] MEDS: Acetaminophen 325 MG TABLET PO PRN (20:03)
[2022-04-24] MEDS ORDERED: *HR* HYDROcodone/Acet 5/325 mg TABLET PO ONE (20:29)
[2022-04-24] MEDS: 0.9 % Sodium Chloride 1,000 ML IVC SCH (20:38)
[2022-04-24] MEDS: Melatonin 3 MG TABLET PO PRN (20:38)
[2022-04-25] MEDS: Ipratropium/Albuterol Neb 3 ML IH SCH ×4 (03:53→22:53)
[2022-04-25] MEDS: 0.9 % Sodium Chloride 1,000 ML IVC SCH ×2 (06:31→16:08)
[2022-04-25] MEDS: *HR* Enoxaparin 40 MG/0.4 ML SYRINGE SQ SCH (06:32)
[2022-04-25] MEDS: Lactobacillus 1 EACH CAP.SPRINK PO SCH ×2 (10:46→22:14)
[2022-04-25] MEDS: Artificial Tears SOLN 15 ML BOTTLE BOTH EYES SCH ×2 (10:46→22:24)
[2022-04-25] MEDS: Gabapentin 400 MG CAPSULE PO SCH ×4 (10:46→22:24)
[2022-04-25] MEDS: Chlorhexidine Rinse 15 ML MOUTHWASH MM SCH ×2 (10:46→22:16)
[2022-04-25] MEDS: cefTRIAXone 2,000 MG in 0.9 % Sodium Chloride 20 ML IVP SCH (10:46)
[2022-04-25] MEDS: lisinopriL 20 MG TABLET PO SCH (10:46)
[2022-04-25] MEDS: BuPROPion XL (24 HR) 150 MG TABLET PO SCH (10:46)
[2022-04-25] MEDS: Famotidine 20 MG TABLET PO SCH (10:46)
[2022-04-25] MEDS: Benzonatate 100 MG CAPSULE PO PRN ×2 (10:59→22:14)
[2022-04-25] MEDS: Ibuprofen 400 MG TABLET PO PRN (14:55)
[2022-04-25] MEDS: Azithromycin 500 MG in 0.9 % Sodium Chloride 250 ML IVPB SCH (22:13)
[2022-04-25] MEDS: Melatonin 3 MG TABLET PO PRN (22:14)
[2022-04-25] MEDS: Acetaminophen 325 MG TABLET PO PRN (22:15)
[2022-04-25] MEDS: tiZANidine 4 MG TABLET PO PRN (22:15)
[2022-04-25] MEDS: Sennosides/Docusate Sodium TABLET PO SCH (22:15)
[2022-04-25] MEDS: Ondansetron 4 MG/2 ML VIAL IVP PRN (22:16)
[2022-04-25] MEDS ORDERED: ALPRAZolam 0.5 MG TABLET PO ONE (23:38)
[2022-04-26] MEDS: 0.9 % Sodium Chloride 1,000 ML IVC SCH (02:15)
[2022-04-26 03:47] LABS: BUN/Creatinine Ratio 9 (6-26); Blood Urea Nitrogen 5 mg/dL (6-20); Calcium 8.1 mg/dL (8.6-10.3); Carbon Dioxide 19 mEq/L (23-29); Chloride 110 mEq/L (98-107); Glucose 109 mg/dL (70-105); Osmolality,Calculated 282 (280-300); Potassium 3.2 mEq/L (3.5-5.1); Sodium 137 mEq/L (136-145)
[2022-04-26] MEDS: Ipratropium/Albuterol Neb 3 ML IH SCH ×4 (04:06→22:17)
[2022-04-26] MEDS: *HR* Enoxaparin 40 MG/0.4 ML SYRINGE SQ SCH (06:11)
[2022-04-26] MEDS: Sennosides/Docusate Sodium TABLET PO SCH ×2 (08:22→21:34)
[2022-04-26] MEDS: Famotidine 20 MG TABLET PO SCH (08:22)
[2022-04-26] MEDS: BuPROPion XL (24 HR) 150 MG TABLET PO SCH (08:22)
[2022-04-26] MEDS: Lactobacillus 1 EACH CAP.SPRINK PO SCH ×2 (08:22→21:34)
[2022-04-26] MEDS: Gabapentin 400 MG CAPSULE PO SCH ×4 (08:22→21:34)
[2022-04-26] MEDS: lisinopriL 20 MG TABLET PO SCH (08:22)
[2022-04-26] MEDS: cefTRIAXone 2,000 MG in 0.9 % Sodium Chloride 20 ML IVP SCH (08:22)
[2022-04-26] MEDS: Chlorhexidine Rinse 15 ML MOUTHWASH MM SCH (08:23)
[2022-04-26] MEDS: Artificial Tears SOLN 15 ML BOTTLE BOTH EYES SCH (08:23)
[2022-04-26] MEDS: Ondansetron 4 MG/2 ML VIAL IVP PRN ×2 (08:27→17:35)
[2022-04-26] MEDS: Ibuprofen 400 MG TABLET PO PRN (08:27)
[2022-04-26] MEDS: tiZANidine 4 MG TABLET PO PRN (08:27)
[2022-04-26] MEDS: valACYclovir 500 MG TABLET PO SCH ×2 (11:43→21:34)
[2022-04-26] MEDS ORDERED: Azithromycin 250 MG TABLET PO SCH (21:00)
[2022-04-26 21:58] LABS: ABG Base Excess -5 mEq/L (-2 to 3); ABG HCO3 19 mEq/L (21-27); ABG Oxygen Saturation 92 % (95-98); ABG PCO2 32 mmHg (35-45); ABG PH 7.38 pH Units (7.32-7.45); ABG PO2 63 mmHg (85-104); ABG TCO2 20 mEq/L (20-26)
[2022-04-27 03:14] LABS: Basophils # 0.1 K/mcL (0.0-0.2); Basophils % 0.4 %; Eosinophils # 0.4 K/mcL (0.0-0.6); Eosinophils % 2.2 %; Hematocrit 29.4 % (35.3-44.9); Immature Granulocytes % 0.4 % (0-4); Lymphocytes # 1.6 K/mcL (0.6-4.6); Lymphocytes % 8.7 %; Mean Corpuscular HGB Conc 32.3 g/dL (31.6-35.5); Mean Corpuscular Hemoglobin 28.4 pg (28.0-33.3); Monocytes % 5.1 %; Neutrophils # 15.4 K/mcL (1.6-8.9); Platelet Count 352 K/mcL (140-400); Red Blood Count 3.34 M/mcL (3.82-4.97); Red Cell Distribution Width 14.7 % (11.5-14.5); Segmented Neutrophils % 83.2 %; White Blood Count 18.5 K/mcL (4.3-11.1)
[2022-04-27 03:16] LABS: Hemoglobin 9.5 g/dL (11.5-15.4)
[2022-04-27 03:34] LABS: BUN/Creatinine Ratio 7 (6-26); Blood Urea Nitrogen 5 mg/dL (6-20); Calcium 8.7 mg/dL (8.6-10.3); Carbon Dioxide 20 mEq/L (23-29); Chloride 107 mEq/L (98-107); Glucose 93 mg/dL (70-105); Osmolality,Calculated 275 (280-300); Potassium 3.7 mEq/L (3.5-5.1); Sodium 134 mEq/L (136-145)
[2022-04-27] MEDS: Ipratropium/Albuterol Neb 3 ML IH SCH ×4 (04:41→23:03)
[2022-04-27] MEDS: Benzonatate 100 MG CAPSULE PO PRN (05:28)
[2022-04-27] MEDS: *HR* Enoxaparin 40 MG/0.4 ML SYRINGE SQ SCH (05:28)
[2022-04-27] MEDS: Artificial Tears SOLN 15 ML BOTTLE BOTH EYES SCH ×3 (07:09→20:51)
[2022-04-27] MEDS: Chlorhexidine Rinse 15 ML MOUTHWASH MM SCH ×4 (07:09→20:57)
[2022-04-27] MEDS: Sennosides/Docusate Sodium TABLET PO SCH ×2 (08:18→20:49)
[2022-04-27] MEDS: cefTRIAXone 2,000 MG in 0.9 % Sodium Chloride 20 ML IVP SCH (08:18)
[2022-04-27] MEDS: Gabapentin 400 MG CAPSULE PO SCH ×4 (08:18→20:49)
[2022-04-27] MEDS: Famotidine 20 MG TABLET PO SCH (08:18)
[2022-04-27] MEDS: Lactobacillus 1 EACH CAP.SPRINK PO SCH ×2 (08:18→20:49)
[2022-04-27] MEDS: BuPROPion XL (24 HR) 150 MG TABLET PO SCH (08:18)
[2022-04-27] MEDS: lisinopriL 20 MG TABLET PO SCH (08:18)
[2022-04-27] MEDS: Ondansetron 4 MG/2 ML VIAL IVP PRN (08:28)
[2022-04-27] MEDS ORDERED: Piperacillin/Tazobactam 4.5 GM in 0.9 % Sodium Chloride Mini Bag 100 ML IVPB ONE (09:17)
[2022-04-27] MEDS: Piperacillin/Tazobactam 3.375 GM in 0.9 % Sodium Chloride Mini Bag 100 ML IVPB SCH ×2 (11:14→17:17)
[2022-04-27] MEDS: Vancomycin 1,250 MG/262.5 ML IV.SOLN IVPB SCH ×2 (11:14→23:34)
[2022-04-27] MEDS ORDERED: Doxycycline 100 MG in 0.9 % Sodium Chloride Mini Bag 100 ML IVPB SCH (18:00)
[2022-04-27] MEDS ORDERED: AMITRIPTYLINE HCL 100 MG PO SCH (21:00)
[2022-04-27 21:23] LABS: ABG Base Excess -6 mEq/L (-2 to 3); ABG HCO3 19 mEq/L (21-27); ABG Oxygen Saturation 81 % (95-98); ABG PCO2 34 mmHg (35-45); ABG PH 7.36 pH Units (7.32-7.45); ABG PO2 47 mmHg (85-104); ABG TCO2 20 mEq/L (20-26)
[2022-04-28] MEDS ORDERED: *HR* LORazepam 2 MG/ML VIAL IVP ONE (01:35)
[2022-04-28] MEDS: Ipratropium/Albuterol Neb 3 ML IH SCH ×5 (03:24→23:19)
[2022-04-28] MEDS: Ondansetron 4 MG/2 ML VIAL IVP PRN ×2 (03:36→16:07)
[2022-04-28 03:53] LABS: Basophils # 0.1 K/mcL (0.0-0.2); Basophils % 0.3 %; Eosinophils # 0.4 K/mcL (0.0-0.6); Eosinophils % 2.8 %; Hematocrit 35.9 % (35.3-44.9); Immature Granulocytes % 0.4 % (0-4); Immature Platelets 3.8 % (1.1-6.1); Lymphocytes % 6.5 %; Mean Corpuscular HGB Conc 30.6 g/dL (31.6-35.5); Mean Corpuscular Hemoglobin 28.1 pg (28.0-33.3); Mean Corpuscular Volume 91.6 fL (83.0-100.0); Mean Platelet Volume 10.7 fL (9.4-12.4); Monocytes % 6.4 %; Platelet Count 238 K/mcL (140-400); Red Blood Count 3.92 M/mcL (3.82-4.97); Segmented Neutrophils % 83.6 %; White Blood Count 15.6 K/mcL (4.3-11.1)
[2022-04-28 03:57] LABS: BUN/Creatinine Ratio 7 (6-26); Blood Urea Nitrogen 4 mg/dL (6-20); Calcium 8.2 mg/dL (8.6-10.3); Carbon Dioxide 13 mEq/L (23-29); Chloride 110 mEq/L (98-107); Glucose 78 mg/dL (70-105); Osmolality,Calculated 274 (280-300); Potassium 4.1 mEq/L (3.5-5.1); Sodium 134 mEq/L (136-145)
[2022-04-28] MEDS: Piperacillin/Tazobactam 3.375 GM in 0.9 % Sodium Chloride Mini Bag 100 ML IVPB SCH ×3 (04:11→20:31)
[2022-04-28] MEDS: *HR* Enoxaparin 40 MG/0.4 ML SYRINGE SQ SCH (05:46)
[2022-04-28] MEDS: lisinopriL 20 MG TABLET PO SCH (08:07)
[2022-04-28] MEDS: Gabapentin 400 MG CAPSULE PO SCH ×4 (08:07→20:33)
[2022-04-28] MEDS: Lactobacillus 1 EACH CAP.SPRINK PO SCH ×2 (08:08→20:33)
[2022-04-28] MEDS: BuPROPion XL (24 HR) 150 MG TABLET PO SCH (08:08)
[2022-04-28] MEDS: Artificial Tears SOLN 15 ML BOTTLE BOTH EYES SCH ×2 (08:08→22:36)
[2022-04-28] MEDS: Sennosides/Docusate Sodium TABLET PO SCH ×2 (08:08→20:33)
[2022-04-28] MEDS: Chlorhexidine Rinse 15 ML MOUTHWASH MM SCH ×3 (08:08→22:36)
[2022-04-28] MEDS: Famotidine 20 MG TABLET PO SCH (08:08)
[2022-04-28] MEDS: Doxycycline 100 MG in 0.9 % Sodium Chloride Mini Bag 100 ML IVPB SCH ×2 (08:12→20:32)
[2022-04-28] MEDS ORDERED: NON-FORMULARY MEDICATION 1 EACH EACH (Famotidine [Pepcid] 40 MG Tablet) PO SCH (09:14)
[2022-04-28] MEDS: Vancomycin 1,250 MG/262.5 ML IV.SOLN IVPB SCH (11:50)
[2022-04-28] MEDS: diazePAM 10 MG/2 ML SYRINGE IVP SCH ×2 (12:09→17:29)
[2022-04-28 14:03] LABS: ABG Base Excess -7 mEq/L (-2 to 3); ABG Chloride 110 mEq/L (98-107); ABG Glucose 81 mg/dL (60-95); ABG HCO3 18 mEq/L (21-27); ABG Ionized Calcium 1.25 mmol/L (1.15-1.35); ABG Oxygen Saturation 93 % (95-98); ABG PCO2 32 mmHg (35-45); ABG PH 7.35 pH Units (7.32-7.45); ABG PO2 68 mmHg (85-104); ABG TCO2 19 mEq/L (20-26)
[2022-04-28] MEDS ORDERED: methylPREDNISolone 125 MG/2 ML VIAL IVP ONE (19:49)
[2022-04-28] MEDS: Melatonin 3 MG TABLET PO PRN (20:34)
[2022-04-28] MEDS: Benzonatate 100 MG CAPSULE PO PRN (20:34)
[2022-04-28 23:31] LABS: Vancomycin,Trough 8 mcg/mL (5-10)
[2022-04-28 23:32] LABS: Troponin I < 0.03 ng/mL (< 0.04)
[2022-04-29] MEDS ORDERED: Vancomycin 1,500 MG/265 ML IV.SOLN IVPB SCH
[2022-04-29] MEDS: diazePAM 10 MG/2 ML SYRINGE IVP SCH ×2 (00:08→05:57)
[2022-04-29] MEDS ORDERED: MethylPREDNISolone 40 MG/ML VIAL IVP SCH (03:00)
[2022-04-29] MEDS: Ipratropium/Albuterol Neb 3 ML IH SCH (04:06)
[2022-04-29] MEDS: Piperacillin/Tazobactam 3.375 GM in 0.9 % Sodium Chloride Mini Bag 100 ML IVPB SCH (04:19)
[2022-04-29] MEDS: *HR* Enoxaparin 40 MG/0.4 ML SYRINGE SQ SCH (05:56)
[2022-04-29] MEDS: Ondansetron 4 MG/2 ML VIAL IVP PRN ×3 (06:09→17:35)
[2022-04-29] MEDS ORDERED: Saliva Stimulant 44.3ml BOTTLE PO PRN (07:13)
[2022-04-29] MEDS ORDERED: Acetaminophen 325 MG TABLET PO PRN (07:13)
[2022-04-29] MEDS ORDERED: Ibuprofen 400 MG TABLET PO PRN (07:13)
[2022-04-29] MEDS ORDERED: Naloxone 0.4 MG/ML INJ IVP PRN (07:13)
[2022-04-29] MEDS ORDERED: Ondansetron 4 MG/2 ML VIAL IVP PRN (07:13)
[2022-04-29] MEDS ORDERED: Melatonin 3 MG TABLET PO PRN (07:13)
[2022-04-29] MEDS ORDERED: tiZANidine 4 MG TABLET PO PRN (07:13)
[2022-04-29] MEDS ORDERED: Benzonatate 100 MG CAPSULE PO PRN (07:13)
[2022-04-29] MEDS: lisinopriL 20 MG TABLET PO SCH (09:03)
[2022-04-29] MEDS: Lactobacillus 1 EACH CAP.SPRINK PO SCH ×2 (09:03→20:57)
[2022-04-29] MEDS: Chlorhexidine Rinse 15 ML MOUTHWASH MM SCH ×2 (09:03→20:56)
[2022-04-29] MEDS: Famotidine 20 MG TABLET PO SCH (09:03)
[2022-04-29] MEDS: Sennosides/Docusate Sodium TABLET PO SCH ×2 (09:03→20:57)
[2022-04-29] MEDS: BuPROPion XL (24 HR) 150 MG TABLET PO SCH (09:03)
[2022-04-29] MEDS: Artificial Tears SOLN 15 ML BOTTLE BOTH EYES SCH ×2 (09:04→20:57)
[2022-04-29] MEDS: Gabapentin 400 MG CAPSULE PO SCH ×4 (09:04→20:57)
[2022-04-29] MEDS: Doxycycline 100 MG in 0.9 % Sodium Chloride Mini Bag 100 ML IVPB SCH ×2 (09:04→21:02)
[2022-04-30 04:27] LABS: ABG Base Excess -7 mEq/L (-2 to 3); ABG HCO3 18 mEq/L (21-27); ABG Oxygen Saturation 95 % (95-98); ABG PCO2 35 mmHg (35-45); ABG PH 7.33 pH Units (7.32-7.45); ABG PO2 80 mmHg (85-104); ABG TCO2 19 mEq/L (20-26); Blood Gas Modality BiLevel
[2022-04-30 04:37] LABS: Hematocrit 33.6 % (35.3-44.9); Hemoglobin 10.5 g/dL (11.5-15.4); Mean Corpuscular HGB Conc 31.3 g/dL (31.6-35.5); Mean Corpuscular Hemoglobin 28.2 pg (28.0-33.3); Mean Corpuscular Volume 90.1 fL (83.0-100.0); Mean Platelet Volume 9.5 fL (9.4-12.4); Platelet Count 476 K/mcL (140-400); Red Blood Count 3.73 M/mcL (3.82-4.97); Red Cell Distribution Width 14.7 % (11.5-14.5); White Blood Count 18.2 K/mcL (4.3-11.1)
[2022-04-30 04:55] LABS: BUN/Creatinine Ratio 22 (6-26); Blood Urea Nitrogen 13 mg/dL (6-20); Calcium 9.2 mg/dL (8.6-10.3); Carbon Dioxide 20 mEq/L (23-29); Chloride 113 mEq/L (98-107); Glucose 105 mg/dL (70-105); Osmolality,Calculated 286 (280-300); Potassium 3.8 mEq/L (3.5-5.1); Sodium 138 mEq/L (136-145)
[2022-04-30] MEDS: *HR* Enoxaparin 40 MG/0.4 ML SYRINGE SQ SCH (06:18)
[2022-04-30] MEDS: BuPROPion XL (24 HR) 150 MG TABLET PO SCH (08:51)
[2022-04-30] MEDS: Chlorhexidine Rinse 15 ML MOUTHWASH MM SCH ×2 (08:51→20:27)
[2022-04-30] MEDS: Lactobacillus 1 EACH CAP.SPRINK PO SCH ×2 (08:51→20:27)
[2022-04-30] MEDS: Gabapentin 400 MG CAPSULE PO SCH ×4 (08:51→20:27)
[2022-04-30] MEDS: Famotidine 20 MG TABLET PO SCH (08:51)
[2022-04-30] MEDS: lisinopriL 20 MG TABLET PO SCH (08:51)
[2022-04-30] MEDS: Doxycycline 100 MG in 0.9 % Sodium Chloride Mini Bag 100 ML IVPB SCH ×2 (08:52→20:32)
[2022-04-30] MEDS: Sennosides/Docusate Sodium TABLET PO SCH ×2 (08:52→20:27)
[2022-04-30] MEDS: Artificial Tears SOLN 15 ML BOTTLE BOTH EYES SCH ×2 (08:53→20:27)
[2022-04-30] MEDS: Ondansetron 4 MG/2 ML VIAL IVP PRN (21:32)
[2022-05-01 02:26] LABS: Hematocrit 32.2 % (35.3-44.9); Mean Corpuscular HGB Conc 31.1 g/dL (31.6-35.5); Mean Corpuscular Hemoglobin 27.8 pg (28.0-33.3); Mean Corpuscular Volume 89.4 fL (83.0-100.0); Mean Platelet Volume 9.8 fL (9.4-12.4); Platelet Count 459 K/mcL (140-400); Red Cell Distribution Width 14.8 % (11.5-14.5); White Blood Count 10.9 K/mcL (4.3-11.1)
[2022-05-01 02:43] LABS: BUN/Creatinine Ratio 18 (6-26); Blood Urea Nitrogen 10 mg/dL (6-20); Calcium 8.4 mg/dL (8.6-10.3); Carbon Dioxide 19 mEq/L (23-29); Chloride 111 mEq/L (98-107); Glucose 84 mg/dL (70-105); Osmolality,Calculated 282 (280-300); Potassium 3.4 mEq/L (3.5-5.1); Sodium 137 mEq/L (136-145)
[2022-05-01] MEDS: *HR* Enoxaparin 40 MG/0.4 ML SYRINGE SQ SCH (06:01)
[2022-05-01] MEDS: Doxycycline 100 MG in 0.9 % Sodium Chloride Mini Bag 100 ML IVPB SCH ×2 (08:46→20:59)
[2022-05-01] MEDS: lisinopriL 20 MG TABLET PO SCH (08:48)
[2022-05-01] MEDS: Gabapentin 400 MG CAPSULE PO SCH ×4 (08:48→22:08)
[2022-05-01] MEDS: Famotidine 20 MG TABLET PO SCH (08:48)
[2022-05-01] MEDS: BuPROPion XL (24 HR) 150 MG TABLET PO SCH (08:48)
[2022-05-01] MEDS: Sennosides/Docusate Sodium TABLET PO SCH ×2 (08:48→20:02)
[2022-05-01] MEDS: Lactobacillus 1 EACH CAP.SPRINK PO SCH ×2 (08:49→20:02)
[2022-05-01] MEDS: Chlorhexidine Rinse 15 ML MOUTHWASH MM SCH ×2 (08:49→20:02)
[2022-05-01] MEDS: Artificial Tears SOLN 15 ML BOTTLE BOTH EYES SCH ×2 (08:49→20:00)
[2022-05-02 03:41] LABS: Hematocrit 34.4 % (35.3-44.9); Hemoglobin 10.9 g/dL (11.5-15.4); Mean Corpuscular HGB Conc 31.7 g/dL (31.6-35.5); Mean Corpuscular Volume 88.4 fL (83.0-100.0); Mean Platelet Volume 9.5 fL (9.4-12.4); Platelet Count 526 K/mcL (140-400); Red Blood Count 3.89 M/mcL (3.82-4.97); Red Cell Distribution Width 14.8 % (11.5-14.5); White Blood Count 7.9 K/mcL (4.3-11.1)
[2022-05-02 04:09] LABS: BUN/Creatinine Ratio 12 (6-26); Blood Urea Nitrogen 6 mg/dL (6-20); Calcium 8.6 mg/dL (8.6-10.3); Carbon Dioxide 18 mEq/L (23-29); Chloride 110 mEq/L (98-107); Glucose 78 mg/dL (70-105); Osmolality,Calculated 280 (280-300); Potassium 3.6 mEq/L (3.5-5.1); Sodium 137 mEq/L (136-145)
[2022-05-02] MEDS: *HR* Enoxaparin 40 MG/0.4 ML SYRINGE SQ SCH (05:28)
[2022-05-02] MEDS: Chlorhexidine Rinse 15 ML MOUTHWASH MM SCH ×2 (07:57→20:48)
[2022-05-02] MEDS: Famotidine 20 MG TABLET PO SCH (08:03)
[2022-05-02] MEDS: Gabapentin 400 MG CAPSULE PO SCH ×4 (08:03→20:48)
[2022-05-02] MEDS: Ondansetron 4 MG/2 ML VIAL IVP PRN ×2 (08:03→13:31)
[2022-05-02] MEDS: Doxycycline 100 MG in 0.9 % Sodium Chloride Mini Bag 100 ML IVPB SCH ×2 (08:04→20:47)
[2022-05-02] MEDS: BuPROPion XL (24 HR) 150 MG TABLET PO SCH (08:04)
[2022-05-02] MEDS: lisinopriL 20 MG TABLET PO SCH (08:04)
[2022-05-02] MEDS: Sennosides/Docusate Sodium TABLET PO SCH ×2 (08:04→20:48)
[2022-05-02] MEDS: Lactobacillus 1 EACH CAP.SPRINK PO SCH ×2 (08:05→20:48)
[2022-05-02] MEDS: Artificial Tears SOLN 15 ML BOTTLE BOTH EYES SCH ×2 (08:18→20:48)
[2022-05-03] MEDS: MethylPREDNISolone 40 MG/ML VIAL IVP SCH ×3 (00:10→15:46)
[2022-05-03 05:06] LABS: Hematocrit 36.3 % (35.3-44.9); Hemoglobin 11.7 g/dL (11.5-15.4); Mean Corpuscular HGB Conc 32.2 g/dL (31.6-35.5); Mean Corpuscular Hemoglobin 28.5 pg (28.0-33.3); Mean Corpuscular Volume 88.5 fL (83.0-100.0); Mean Platelet Volume 9.3 fL (9.4-12.4); Platelet Count 548 K/mcL (140-400); Red Cell Distribution Width 14.7 % (11.5-14.5)
[2022-05-03 05:08] LABS: White Blood Count 12.2 K/mcL (4.3-11.1)
[2022-05-03 05:27] LABS: BUN/Creatinine Ratio 15 (6-26); Blood Urea Nitrogen 8 mg/dL (6-20); Calcium 9.3 mg/dL (8.6-10.3); Carbon Dioxide 18 mEq/L (23-29); Chloride 111 mEq/L (98-107); Glucose 129 mg/dL (70-105); Osmolality,Calculated 282 (280-300); Potassium 4.1 mEq/L (3.5-5.1); Sodium 136 mEq/L (136-145)
[2022-05-03] MEDS: *HR* Enoxaparin 40 MG/0.4 ML SYRINGE SQ SCH (05:27)
[2022-05-03] MEDS: Doxycycline 100 MG in 0.9 % Sodium Chloride Mini Bag 100 ML IVPB SCH (08:47)
[2022-05-03] MEDS: Chlorhexidine Rinse 15 ML MOUTHWASH MM SCH ×2 (08:48→20:41)
[2022-05-03] MEDS: Lactobacillus 1 EACH CAP.SPRINK PO SCH ×2 (08:48→20:38)
[2022-05-03] MEDS: Artificial Tears SOLN 15 ML BOTTLE BOTH EYES SCH ×2 (08:48→20:41)
[2022-05-03] MEDS: Gabapentin 400 MG CAPSULE PO SCH ×4 (08:49→20:38)
[2022-05-03] MEDS: BuPROPion XL (24 HR) 150 MG TABLET PO SCH (08:49)
[2022-05-03] MEDS: lisinopriL 20 MG TABLET PO SCH (08:49)
[2022-05-03] MEDS: Sennosides/Docusate Sodium TABLET PO SCH ×2 (08:49→20:38)
[2022-05-03] MEDS: Famotidine 20 MG TABLET PO SCH (08:49)
[2022-05-03] MEDS: Ondansetron 4 MG/2 ML VIAL IVP PRN (16:26)
[2022-05-04] MEDS: MethylPREDNISolone 40 MG/ML VIAL IVP SCH ×2 (00:57→08:42)
[2022-05-04 05:17] LABS: Hematocrit 37.1 % (35.3-44.9); Hemoglobin 11.7 g/dL (11.5-15.4); Mean Corpuscular HGB Conc 31.5 g/dL (31.6-35.5); Mean Corpuscular Hemoglobin 27.7 pg (28.0-33.3); Mean Corpuscular Volume 87.7 fL (83.0-100.0); Mean Platelet Volume 9.4 fL (9.4-12.4); Platelet Count 690 K/mcL (140-400); Red Blood Count 4.23 M/mcL (3.82-4.97); Red Cell Distribution Width 14.8 % (11.5-14.5); White Blood Count 14.3 K/mcL (4.3-11.1)
[2022-05-04 05:34] LABS: BUN/Creatinine Ratio 24 (6-26); Blood Urea Nitrogen 12 mg/dL (6-20); Calcium 9.7 mg/dL (8.6-10.3); Carbon Dioxide 19 mEq/L (23-29); Chloride 109 mEq/L (98-107); Glucose 143 mg/dL (70-105); Osmolality,Calculated 284 (280-300); Potassium 3.8 mEq/L (3.5-5.1); Sodium 136 mEq/L (136-145)
[2022-05-04] MEDS: *HR* Enoxaparin 40 MG/0.4 ML SYRINGE SQ SCH (06:39)
[2022-05-04] MEDS: Artificial Tears SOLN 15 ML BOTTLE BOTH EYES SCH (08:40)
[2022-05-04] MEDS: Chlorhexidine Rinse 15 ML MOUTHWASH MM SCH (08:41)
[2022-05-04] MEDS: BuPROPion XL (24 HR) 150 MG TABLET PO SCH (08:42)
[2022-05-04] MEDS: Gabapentin 400 MG CAPSULE PO SCH ×2 (08:42→12:52)
[2022-05-04] MEDS: Famotidine 20 MG TABLET PO SCH (08:42)
[2022-05-04] MEDS: Ondansetron 4 MG/2 ML VIAL IVP PRN (08:42)
[2022-05-04] MEDS: lisinopriL 20 MG TABLET PO SCH (08:43)
[2022-05-04] MEDS: Sennosides/Docusate Sodium TABLET PO SCH (08:43)
[2022-05-04] MEDS: Lactobacillus 1 EACH CAP.SPRINK PO SCH (08:43)
[2022-05-04 11:04] VITALS: BP 122/86; PULSE 102; TEMP 97.5; O2SAT 93
== END 2022-05-04 17:48 | disposition home or self-care (01) | DRG 720 ==
LOC: EMEROOARM 19:06 → 3ANU 19:06 → SUATTDRO 21:54 → 3ANU 22:15 → 2NENU 04-28 19:58
PROVIDERS: ADMIT Internal Medicine; ATTEND Internal Medicine